=== PATIENT | female | born 1960 | race African-American/Black ===

== ENCOUNTER → 2016-10-29 | Outpatient (CLI) | payer BC ==
[~2016-10-29] MED LIST: CIPRO500 MG PO; COLCRYS0.6 MG PO; DOXYCYCLINE MO100 MG PO; FLOMAX0.4 MG PO; HCTZ PO; HYDR12.5C PO; INDOCIN50 MG PO; KEFLEX500 MG PO; NORVASC2.5 MG PO; PERCOCET 325 MG1 TA2 PO; SENOKOT1 TAB PO; TRAMADOL HCL50 MG PO; ZESTRIL,PRINIVI10 MG PO; ZYLOPRIM100 MG PO
[2016-10-29 13:06] LABS: BASO % 0.4 % (0.0-1.0); EOS # 0.2 10*3/uL (0.0-0.4); EOS % 2.1 % (1.0-4.0); HEMATOCRIT 39.5 % (37.0-47.0); HEMOGLOBIN 13.3 g/dl (12.0-16.0); LYMPH # 3.4 10*3/uL (1.3-4.4); LYMPH % 44.1 % (27.0-41.0); MEAN CELL VOLUME 90.6 fl (81.0-99.0); MEAN CORPUSCULAR HGB 30.5 pg (27.0-31.0); MEAN CORPUSCULAR HGB CONC 33.7 g/dl (33.0-37.0); MONO # 0.4 10*3/uL (0.1-1.0); NEUT # 3.7 10*3/uL (2.3-7.9); NEUT % 48.3 % (47.0-73.0); PLATELET COUNT AUTOMATED 287 10*3/uL (130-400); RED BLOOD COUNT 4.36 10*6/uL (4.10-5.10); RED CELL DISTRI WIDTH 12.4 % (0-14.5); WHITE BLOOD COUNT 7.8 10*3/uL (4.8-10.8)
[2016-10-29 13:34] LABS: ALBUMIN 3.5 gm/dl (3.1-4.5); ALKALINE PHOSPHATASE 71 U/L (45-117); BILIRUBIN, TOTAL 0.4 mg/dl (0.2-1.0); BUN 13 mg/dl (7-24); CARBON DIOXIDE 26 mmol/L (21-32); CHLORIDE 105 mmol/L (98-107); CHOLESTEROL 265 mg/dL (<200); EST GLOM FILT AFRICAN AMERICAN > 60 ml/min; FREE T4 1.13 ng/dl (0.76-1.46); GLUCOSE 128 mg/dL (65-99); HDL CHOLESTEROL 71 mg/dl (40-60); LDH 145 U/L (84-246); LDL CHOLESTEROL 133 mg/dL (9-159); POTASSIUM 3.4 mmol/L (3.5-5.1); SGOT/AST 20 IU/L (3-35); SGPT/ALT 23 U/L (12-78); SODIUM 144 mmol/L (136-145); TOTAL PROTEIN 7.9 gm/dL (6.4-8.2); TRIGLYCERIDES 305 mg/dl (<150); VLDL CHOLESTEROL 61 mg/dL (6-40)
[2016-10-29 13:54] LABS: HEMOGLOBIN A1c 10.1 % (4.8-5.6)
== END | disposition home or self-care (01) ==
LOC: LAB 12:37
PROVIDERS: Family Medicine
DX: E11.65 Type 2 diabetes mellitus with hyperglycemia (principal); I10 Essential (primary) hypertension; E78.5 Hyperlipidemia, unspecified; E55.9 Vitamin D deficiency, unspecified

== ENCOUNTER 2017-05-25 17:57 | Emergency (ER) | payer OTHER ==
[~2017-05-25] VITALS: Ht 172.7 cm; Wt 99.8 kg
[2017-05-25 19:28] LABS: BASO % 0.2 % (0.0-1.0); EOS % 0.1 % (1.0-4.0); HEMATOCRIT 38.8 % (37.0-47.0); HEMOGLOBIN 13.2 g/dl (12.0-16.0); IG # 0.1 10*3/uL (0.0-0.1); LYMPH # 1.1 10*3/uL (1.3-4.4); LYMPH % 5.9 % (27.0-41.0); MEAN CORPUSCULAR HGB 30.6 pg (27.0-31.0); MEAN PLATELET VOLUME 11.1 fl (9.6-12.3); MONO # 0.8 10*3/uL (0.1-1.0); MONO % 4.3 % (3.0-9.0); NEUT # 16.8 10*3/uL (2.3-7.9); NEUT % 89.2 % (47.0-73.0); PLATELET COUNT AUTOMATED 287 10*3/uL (130-400); RED BLOOD COUNT 4.31 10*6/uL (4.10-5.10); RED CELL DISTRI WIDTH 12.7 % (0-14.5); WHITE BLOOD COUNT 18.9 10*3/uL (4.8-10.8)
[2017-05-25 19:44] LABS: ALBUMIN 3.4 gm/dl (3.1-4.5); ALKALINE PHOSPHATASE 77 U/L (45-117); BILIRUBIN, TOTAL 0.5 mg/dl (0.2-1.0); BUN 10 mg/dl (7-24); CARBON DIOXIDE 25 mmol/L (21-32); CHLORIDE 101 mmol/L (98-107); EST GLOM FILT AFRICAN AMERICAN > 60 ml/min; GLUCOSE 310 mg/dL (65-99); MAGNESIUM 1.7 mg/dL (1.5-2.1); POTASSIUM 3.9 mmol/L (3.5-5.1); SGOT/AST 28 IU/L (3-35); SGPT/ALT 22 U/L (12-78); SODIUM 135 mmol/L (136-145); TOTAL PROTEIN 8.1 gm/dL (6.4-8.2)
[2017-05-25 19:46] LABS: TROPONIN I < 0.015 ng/ml (<0.045)
[2017-05-25] MEDS ORDERED: DOXYCYCLINE100 M3 PO (20:57)
[2017-05-25 21:24] LABS: LA>2 REFLEX 2 HR DRAW NOW
== END 2017-05-25 22:01 | disposition home or self-care (01) ==
LOC: ED 17:57
PROVIDERS: Nurse Practitioner
DX: J18.9 Pneumonia, unspecified organism (principal); D72.829 Elevated white blood cell count, unspecified; Z79.899 Other long term (current) drug therapy

== ENCOUNTER 2017-12-26 21:03 | Inpatient (IN) | payer OTHER ==
[~2017-12-26] VITALS: Ht 172.7 cm; Wt 104.1 kg
[~2017-12-26 21:03] MED LIST changes: +DOXYCYCLINE100 M3 PO
[2017-12-26 21:15] VITALS: BP 179/110
[2017-12-26 21:45] VITALS: BP 167/102
[2017-12-26 22:12] LABS: BASO % 0.5 % (0.0-1.0); EOS # 0.1 10*3/uL (0.0-0.4); EOS % 0.8 % (1.0-4.0); HEMATOCRIT 37.7 % (37.0-47.0); LYMPH # 3.9 10*3/uL (1.3-4.4); LYMPH % 45.5 % (27.0-41.0); MEAN CELL VOLUME 89.8 fl (81.0-99.0); MEAN CORPUSCULAR HGB CONC 34.5 g/dl (33.0-37.0); MEAN PLATELET VOLUME 11.2 fl (9.6-12.3); MONO # 0.4 10*3/uL (0.1-1.0); MONO % 4.4 % (3.0-9.0); NEUT # 4.2 10*3/uL (2.3-7.9); NEUT % 48.6 % (47.0-73.0); PLATELET COUNT AUTOMATED 318 10*3/uL (130-400); RED CELL DISTRI WIDTH 12.7 % (0-14.5); WHITE BLOOD COUNT 8.6 10*3/uL (4.8-10.8)
[2017-12-26 22:22] LABS: ACT PARTIAL THROMBO TIME 22.2 SECONDS (20.8-31.5)
[2017-12-26 22:30] LABS: ALBUMIN 3.2 gm/dl (3.1-4.5); ALKALINE PHOSPHATASE 71 U/L (45-117); BUN 14 mg/dl (7-24); CHLORIDE 104 mmol/L (98-107); POTASSIUM 3.6 mmol/L (3.5-5.1); SGOT/AST 22 IU/L (3-35); SGPT/ALT 24 U/L (12-78); SODIUM 138 mmol/L (136-145); TOTAL PROTEIN 7.6 gm/dL (6.4-8.2)
[2017-12-26 22:51] VITALS: BP 172/101
[2017-12-26] MEDS ORDERED: HYDROCHLOROTHIA25 M1 PO (23:54)
[2017-12-26] MEDS ORDERED: ZYLOPRIM300 MG PO (23:54)
[2017-12-26] MEDS ORDERED: LISINOPRIL40 MG PO (23:55)
[2017-12-26] MEDS ORDERED: LANTUS SOL100 UNIT/1 SQ (23:57)
[2017-12-27] VITALS (7 sets, daily range): BP systolic 134–164; BP diastolic 78–95
[2017-12-27] MEDS ORDERED: Motrin,Rufen800 MG PO (01:03)
[2017-12-27 06:30] LABS: BASO % 0.3 % (0.0-1.0); EOS # 0.1 10*3/uL (0.0-0.4); EOS % 1.2 % (1.0-4.0); HEMATOCRIT 34.3 % (37.0-47.0); HEMOGLOBIN 11.7 g/dl (12.0-16.0); LYMPH # 4.7 10*3/uL (1.3-4.4); LYMPH % 51.4 % (27.0-41.0); MEAN CELL VOLUME 91.2 fl (81.0-99.0); MEAN CORPUSCULAR HGB 31.1 pg (27.0-31.0); MEAN CORPUSCULAR HGB CONC 34.1 g/dl (33.0-37.0); MEAN PLATELET VOLUME 11.6 fl (9.6-12.3); MONO # 0.4 10*3/uL (0.1-1.0); MONO % 4.7 % (3.0-9.0); NEUT # 3.8 10*3/uL (2.3-7.9); NEUT % 42.2 % (47.0-73.0); PLATELET COUNT AUTOMATED 283 10*3/uL (130-400); RED BLOOD COUNT 3.76 10*6/uL (4.10-5.10); RED CELL DISTRI WIDTH 12.9 % (0-14.5); WHITE BLOOD COUNT 9.1 10*3/uL (4.8-10.8)
[2017-12-27 06:37] LABS: ACT PARTIAL THROMBO TIME 41.9 SECONDS (20.8-31.5)
[2017-12-27 07:03] LABS: BUN 15 mg/dl (7-24); CHLORIDE 104 mmol/L (98-107); CHOLESTEROL 262 mg/dL (<200); CREATININE 0.77 mg/dL (0.55-1.02); HDL CHOLESTEROL 49 mg/dl (40-60); POTASSIUM 3.3 mmol/L (3.5-5.1); SODIUM 137 mmol/L (136-145); TRIGLYCERIDES 567 mg/dl (<150)
[2017-12-27 07:41] LABS: VITAMIN D, 25-HYDROXY 22.2 ng/mL (30-100)
[2017-12-27] MEDS ORDERED: ASPIRIN ADULT L81 M2 PO (17:48)
[2017-12-27] MEDS ORDERED: ALDACTONE25 MG PO (17:48)
[2017-12-27] MEDS ORDERED: METOPROLOL SUCC25 M2 PO (17:48)
[2017-12-27] MEDS ORDERED: ATORVASTATIN CA80 M1 PO (17:48)
[2017-12-28] VITALS: BP 130/84
[2017-12-28 02:43] LABS: BASO # 0.1 10*3/uL (0.0-0.1); BASO % 0.6 % (0.0-1.0); EOS # 0.1 10*3/uL (0.0-0.4); EOS % 1.5 % (1.0-4.0); HEMOGLOBIN 12.3 g/dl (12.0-16.0); LYMPH # 4.7 10*3/uL (1.3-4.4); LYMPH % 50.9 % (27.0-41.0); MEAN CELL VOLUME 90.9 fl (81.0-99.0); MEAN CORPUSCULAR HGB 31.1 pg (27.0-31.0); MEAN CORPUSCULAR HGB CONC 34.2 g/dl (33.0-37.0); MEAN PLATELET VOLUME 11.4 fl (9.6-12.3); MONO # 0.5 10*3/uL (0.1-1.0); MONO % 5.7 % (3.0-9.0); NEUT # 3.8 10*3/uL (2.3-7.9); NEUT % 41.1 % (47.0-73.0); PLATELET COUNT AUTOMATED 292 10*3/uL (130-400); RED BLOOD COUNT 3.96 10*6/uL (4.10-5.10); RED CELL DISTRI WIDTH 12.8 % (0-14.5); WHITE BLOOD COUNT 9.3 10*3/uL (4.8-10.8)
[2017-12-28 02:54] LABS: BUN 13 mg/dl (7-24); CHLORIDE 105 mmol/L (98-107); CREATININE 0.75 mg/dL (0.55-1.02); POTASSIUM 3.4 mmol/L (3.5-5.1); SODIUM 139 mmol/L (136-145)
[2017-12-28 02:55] LABS: PHOSPHOROUS 3.3 mg/dL (2.5-4.9)
[2017-12-28 04:00] VITALS: BP 128/84
== END 2017-12-28 05:00 | disposition short-term general hospital (02) | DRG 281 ==
LOC: ED 21:03 → EDHOLD 22:48 → ICCU 22:48 → 5E 23:20 → ICCU 23:31
PROVIDERS: Internal Medicine; Internal Medicine Nephrology; Student in an Organized Health Care Education/Training Program
DX: I21.4 Non-ST elevation (NSTEMI) myocardial infarction (principal); E87.2 Acidosis; J90 Pleural effusion, not elsewhere classified; E11.65 Type 2 diabetes mellitus with hyperglycemia; E67.8 Other specified hyperalimentation; M10.9 Gout, unspecified; E66.9 Obesity, unspecified; E78.2 Mixed hyperlipidemia; D64.9 Anemia, unspecified; E55.9 Vitamin D deficiency, unspecified; I11.9 Hypertensive heart disease without heart failure; E87.6 Hypokalemia; Z79.2 Long term (current) use of antibiotics; Z79.4 Long term (current) use of insulin; Z79.899 Other long term (current) drug therapy; Z87.01 Personal history of pneumonia (recurrent); Z90.710 Acquired absence of both cervix and uterus; Z72.89 Other problems related to lifestyle; Z82.49 Family history of ischemic heart disease and other diseases of the circulatory system; Z83.3 Family history of diabetes mellitus; Z68.34 Body mass index [BMI] 34.0-34.9, adult

== ENCOUNTER 2018-07-11 11:03 | Emergency (ER) | payer OTHER ==
[~2018-07-11] VITALS: Ht 172.7 cm; Wt 99.8 kg
[~2018-07-11 11:03] MED LIST changes: +ALDACTONE25 MG PO; +ASPIRIN ADULT L81 M2 PO; +ATORVASTATIN CA80 M1 PO; +HYDROCHLOROTHIA25 M1 PO; +LANTUS SOL100 UNIT/1 SQ; +LISINOPRIL40 MG PO; +METOPROLOL SUCC25 M2 PO; +Motrin,Rufen800 MG PO; +ZYLOPRIM300 MG PO
[2018-07-11] MEDS ORDERED: Tobrex Ophth S2.5 ML OPH (11:47)
== END 2018-07-11 13:41 | disposition home or self-care (01) ==
LOC: ED 11:03
DX: H10.9 Unspecified conjunctivitis (principal); Z79.899 Other long term (current) drug therapy; Z79.82 Long term (current) use of aspirin; Z90.710 Acquired absence of both cervix and uterus

== ENCOUNTER 2019-02-07 15:10 | Emergency (ER) | payer OTHER ==
[~2019-02-07] VITALS: Wt 111.3 kg
--- NOTE | ~2019-02-07 | EKG ---
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
[~2019-02-07 15:10] MED LIST changes: +Tobrex Ophth S2.5 ML OPH
[2019-02-07 15:50] LABS: ABG HCO3 12.9 mmol/l (22-26); ABG O2 SATURATION 99.2 % (95-97); ARTERIAL BLOOD GAS PCO2 26.5 mmHg (35-45); ARTERIAL BLOOD GAS PH 7.295 (7.35-7.45)
[2019-02-07 15:52] LABS: ABG BASE EXCESS -12.6 mmol/L (-2.0-2.0)
[2019-02-07 15:56] LABS: HEMOGLOBIN 12.8 g/dl (12.0-16.0); MEAN CELL VOLUME 95.1 fl (81.0-99.0); MEAN CORPUSCULAR HGB 31.2 pg (27.0-31.0); MEAN CORPUSCULAR HGB CONC 32.8 g/dl (33.0-37.0); MEAN PLATELET VOLUME 11.5 fl (9.6-12.3); PLATELET COUNT AUTOMATED 246 10*3/uL (130-400); RED CELL DISTRI WIDTH 13.2 % (0-14.5)
[2019-02-07 16:05] LABS: ACT PARTIAL THROMBO TIME 25.5 SECONDS (20.8-31.5)
[2019-02-07 16:15] LABS: ALBUMIN 2.8 gm/dl (3.1-4.5); CREATININE 1.68 mg/dL (0.55-1.02); TOTAL PROTEIN 7.2 gm/dL (6.4-8.2); TROPONIN I 0.04 ng/ml (<0.045)
[2019-02-07 16:21] LABS: POTASSIUM 3.6 mmol/L (3.5-5.1)
[2019-02-07 16:22] LABS: TOTAL CELLS COUNTED 100 #CELLS
[2019-02-07 16:23] LABS: PLATELET SUFFICIENCY NORMAL (NORMAL)
== END 2019-02-07 16:42 | disposition short-term general hospital (02) ==
LOC: ED 15:19
PROVIDERS: Emergency Medicine
DX: I46.9 Cardiac arrest, cause unspecified (principal); E11.9 Type 2 diabetes mellitus without complications; I10 Essential (primary) hypertension; E78.2 Mixed hyperlipidemia; I25.2 Old myocardial infarction; Z79.2 Long term (current) use of antibiotics; Z79.899 Other long term (current) drug therapy; Z79.82 Long term (current) use of aspirin; Z79.4 Long term (current) use of insulin; Z90.710 Acquired absence of both cervix and uterus

== ENCOUNTER 2019-04-21 21:36 | Inpatient (IN) | payer OTHER ==
[~2019-04-21] VITALS: Ht 172.7 cm; Wt 98.7 kg
--- NOTE | ~2019-04-21 | CON ---
[place], [place] REPORT OF CONSULTATION NAME: TALI REDDY UNIT #: [id number] ROOM: 523 DOCTOR: ALEKSANDRA RAMOS,ERLINDA BIRTHDATE: [birth year] DOS: 04/23/2019 CARDIOLOGY CONSULTATION. REASON FOR CONSULTATION: Sinus bradycardia and CHF. HISTORY OF PRESENT ILLNESS: This is a 58-year-old patient with history of coronary artery disease, cardiomyopathy, hypertension, dyslipidemia, diabetes, who has presented to the Emergency Room for progressive shortness of breath as well as some cough. She is having some progressive shortness of breath for the past several weeks, but denies any PND or orthopnea. She was admitted to the hospital and Cardiology consulted due to her bradycardia and also congestive heart failure. Her only complaint is progressive shortness of breath without any PND or orthopnea. No nausea, vomiting, diarrhea. No fever and chills. No chest pains, no palpitations, dizziness or syncope. No nausea, vomiting, diarrhea. No bladder or bowel symptoms, no neurologic symptoms. No genitourinary symptoms. There is no family at bedside at the time of my examination. REVIEW OF SYSTEMS: Review of 10 systems negative except as mentioned above. PAST MEDICAL HISTORY: 1. Coronary artery disease with NSTEMI in the past. 2. Left ventricular dysfunction with ejection fraction 30% by echo in 2017. 3. Valvular heart disease. 4. Diabetes type 2. 5. Hypertension. 6. Moderate obesity. 7. Asthma. 8. Gout. PAST SURGICAL HISTORY: Nil contributory. SOCIAL HISTORY: The patient does not smoke, does not use the alcohol, does not use any drugs. FAMILY HISTORY: Noncontributory. ALLERGIES: Reviewed. HOME MEDICATIONS: Reviewed including Imdur, Coreg, lisinopril, Plavix, Bumex, Eliquis, and Lipitor. PHYSICAL EXAMINATION: VITAL SIGNS: Blood pressure 160/61, pulse 60, respirations 18, weight 99.9 kg, BMI 33.5. GENERAL: Alert, comfortable, in no acute distress. HEENT: Pupils are round and equal. No jaundice. Tongue was moist and pharynx clear. [place], [place] REPORT OF CONSULTATION NAME: TALI REDDY UNIT #: [id number] ROOM: 523 DOCTOR: ERLINDA LAKE MD BIRTHDATE: [birth year] NECK: Supple, no distended neck veins, no carotid bruit. CHEST: Symmetrical, nontender. LUNGS: Few scattered rhonchi. Good air entry bilaterally. HEART: Regular rhythm, no S3 and grade 2/6 systolic murmur. No palpable thrills. ABDOMEN: Morbidly obese, nontender. Bowel sounds normal. EXTREMITIES: Showed trace edema. Distal pulses palpable. SKIN: Warm and dry. No cyanosis, no clubbing. RECTAL: Deferred. GENITOURINARY: Deferred. PSYCHIATRIC: The patient is alert with good mood and affect. REVIEW OF THE DIAGNOSTIC TESTS: EKG, CBC, chemistry and labs reviewed. Pertinent labs include hemoglobin 10.5. Potassium 3.4, creatinine 0.74. The troponins are negative x 3. Echo from December 2017 showed an EF of 30% with mitral regurgitation, tricuspid regurgitation with right ventricular systolic pressure 34 mmHg. IMPRESSION: 1. Acute on chronic systolic heart failure. 2. History of coronary artery disease, non-ST elevation myocardial infarction. 3. Left ventricular dysfunction with ejection fraction 30% by echo 2018. 4. Valvular heart disease. 5. Mild pulmonary hypertension. 6. Hypertension. 7. Chronic obstructive pulmonary disease. 8. Anemia. 9. The patient was on Eliquis anticoagulation. RECOMMENDATIONS: 1. Continue IV Bumex and monitor her daily weights, ins and outs and renal function. 2. Decrease Coreg to 3.125 b.i.d. and hold for heart rate below 55, currently heart rates are improved after holding Coreg. 3. Increase lisinopril if needed for blood pressure control. 4. We will check 2D echo for LV function and valvular function. 5. Try to check her previous cardiac history including her cardiac catheterization from 2018, although the patient denies having cardiac catheterization. 6. Continue rest of the cardiac medications. 7. Risk factor modification for diet, exercise, weight loss discussed. 8. There is no family at bedside at the time of my examination. [place], [place] REPORT OF CONSULTATION NAME: TALI REDDY UNIT #: [id number] ROOM: 523 DOCTOR: ERLINDA LAKE MD BIRTHDATE: [birth year] ERLINDA LAKE MD CM:CONSTR:REPORT OF CONSULTATION 1921 04/24/19 0237 interface
--- NOTE | ~2019-04-21 | WRIGHTHP ---
[place], [place] PATIENT HISTORY AND PHYSICAL EXAM NAME: TALI REDDY [facility] #: [id number] UNIT #: [id number] ROOM: H2014 DOCTOR: ARABELLA CHILD MD BIRTHDATE: [birth year] DOS: 04/22/2019 HISTORY OF PRESENT ILLNESS: The patient is a 58-year-old female with a past medical history of: 1. Morbid obesity. 2. Coronary artery disease with NSTEMI. 3. Benign essential hypertension. 4. Mixed hyperlipidemia. 5. Type 2 diabetes mellitus. 6. Chronic gouty arthritis. 7. Moderate persistent asthma. The patient presented to the Emergency Department at [facility] with increasing shortness of breath and cough and she was found to be in acute congestive heart failure and acute exacerbation of moderate persistent asthma. REVIEW OF SYSTEMS: RESPIRATORY: Increased shortness of breath and wheezing. GASTROINTESTINAL: No nausea, vomiting, diarrhea, constipation. CARDIOVASCULAR: No chest pains or palpitations. FAMILY HISTORY: Noncontributory. SOCIAL HISTORY: Denies smoking cigarettes, alcohol or any drug abuse. ALLERGIES: No known drug allergies. PHYSICAL EXAMINATION: GENERAL: Alert, oriented, not a good historian, in no visible distress, morbid obesity. VITAL SIGNS: Blood pressure 159/62, heart rate of 76 beats per minute, breathing 16 times per minute, temperature 98.4 degrees Fahrenheit, HEENT AND NECK: Extraocular movements are intact. Sclerae are anicteric. Oral mucosa is moist and clean. No obvious facial weakness. Neck is supple without any lymphadenopathy. No thyromegaly. No JVD. No carotid arterial bruits. LUNGS: On lung auscultation, the patient has expiratory wheezing and decreased breath sounds all over. CARDIOVASCULAR SYSTEM: Heart rate is regular in rate and rhythm. S1 and S2 normally audible. No significant murmur or any other abnormal cardiac sounds. ABDOMEN: Soft, nontender. No obvious organomegaly. Bowel sounds are present. No obvious herniation. EXTREMITIES: Without significant cyanosis or edema. Warm to touch. CENTRAL NERVOUS SYSTEM: Alert and oriented x 3. Cranial nerves II-XII are intact. Speech is normal. The patient is able to move all extremities. Normal muscle strength. Deep tendon reflexes are equal on both sides. Plantars were downgoing. LABORATORY DATA: ProBNP elevated to 550. Chest x-ray is showing acute congestive heart failure findings, vascular congestion. BUN and creatinine [place], [place] PATIENT HISTORY AND PHYSICAL EXAM NAME: TALI REDDY [facility] #: [id number] UNIT #: [id number] ROOM: [facility] DOCTOR: ARABELLA CHILD MD BIRTHDATE: [birth year] elevated to 14 and 1.23, potassium low at 3.3, albumin low at 2.9. IMPRESSION AND PLAN: 1. The patient presenting with acute systolic type congestive heart failure. Echocardiogram to be performed and she will be diuresed with IV Bumex. Cardiology consult obtained. 2. Acute exacerbation of moderate persistent asthma, to be treated with bronchodilators, oxygen and antibiotics and the patient to be followed closely. 3. Morbid obesity. The patient to work with Dietary. 4. Mild protein calorie malnutrition. The patient to work with Dietary. 5. Mixed hyperlipidemia, treated with Lipitor. 6. Benign essential hypertension. The patient on amlodipine. Blood pressure being monitored and treated. 7. Type 2 diabetes mellitus. The patient to be continued on Lantus insulin and blood sugars to be monitored. 8. Generalized disability and ambulatory dysfunction. The patient to work with Physical Therapy. ARABELLA CHILD MD CM:HISPHYS:PATIENT HISTORY AND PHYSICAL EXAMINATION [id number] ARABELLA CHILD MD 04/22/19 1737 interface
--- NOTE | ~2019-04-21 | PR ---
[place], [place] PROGRESS NOTE [id number] UNIT #: [id number] ROOM: 523 DOCTOR: ERLINDA LAKE MD BIRTHDATE: [birth year] DOS: 04/26/2019 CARDIOLOGY FOLLOWUP NOTE REASON FOR VISIT: Heart failure and atrial fibrillation, in sinus bradycardia. SUBJECTIVE: The patient is feeling better. Denies any chest pain or shortness of breath. No palpitation, dizziness, no PND, no orthopnea. No nausea, vomiting or diarrhea. REVIEW OF SYSTEMS: Review of the 8 systems negative except as mentioned above. PHYSICAL EXAMINATION: VITAL SIGNS: Blood pressure 126/80, pulse 92, respiratory rate 19, weight 98.6 kilos. RHYTHM STRIPS: The patient in sinus rhythm. GENERAL: The patient is alert, comfort, no acute distress. HEAD AND NECK: Pupils are round and equal. No jaundice. NECK: Supple, no distended neck veins, no carotid bruit. CHEST: Symmetrical, nontender. LUNGS: Clear to auscultation bilaterally. HEART: Regular rhythm, no S3, no palpable thrills. ABDOMEN: Benign, obese, nontender. Bowel sounds normal. EXTREMITIES: Showed no edema. Distal pulses palpable. SKIN: Warm and dry. No cyanosis, no clubbing. RECTAL: Deferred. NEUROLOGIC: The patient is alert. No focal neurologic deficit. LABORATORY DATA AND MEDICATIONS: Reviewed. IMPRESSION: 1. Acute on chronic heart failure, diastolic heart failure, ejection fraction 60%. 2. Coronary artery disease. Cardiac catheterization in December 2017 showed a total right coronary artery and a 50% left circumflex stenosis. 3. Paroxysmal atrial fibrillation. 4. Sinus bradycardia, resolved after decreasing her beta blockers. 5. Hypertension. 6. Non-morbid obesity. RECOMMENDATIONS: 1. Continue current medication as the patient can be discharged from the cardiac standpoint. Follow up with [facility] at [facility] in 2-4 weeks. 2. Compliance with medications and followup with doctor visits were discussed. 3. No family at bedside at the time of examination. [place], [place] PROGRESS NOTE NAME: TALI REDDY UNIT #: [id number] ROOM: 523 DOCTOR: ERLINDA LAKE MD BIRTHDATE: [birth year] ERLINDA LAKE MD CM:PRESTON [id number] ERLINDA LAKE MD 04/27/19 0001 interface
--- NOTE | ~2019-04-21 | PR ---
[place], [place] PROGRESS NOTE NAME: TALI REDDY [facility] #: [id number] UNIT #: [id number] ROOM: 523 DOCTOR: ARABELLA CHILD MD BIRTHDATE: [birth year] DOS: 04/25/2019 SUBJECTIVE: The patient continues to improve. OBJECTIVE: GENERAL APPEARANCE: The patient is alert and oriented x 3, in no visible distress. Obesity. VITAL SIGNS: Blood pressure 119/70, heart rate of 86 beats per minute, temperature 98.2 degrees Fahrenheit. HEENT AND NECK: Exam within normal limits. CARDIOVASCULAR SYSTEM: Heart rate is regular in rate and rhythm. S1 and S2 normally audible. LUNGS: Clear to auscultation. ABDOMEN: Soft, nontender. No obvious organomegaly. Bowel sounds are present. EXTREMITIES: Without significant cyanosis or edema. IMPRESSION: 1. Acute over chronic diastolic type congestive heart failure on echocardiogram, improved with diuresis. The patient is breathing much better and I may be able to discharge her back to home tomorrow. 2. Acute exacerbation of chronic obstructive pulmonary disease, improving with treatment with bronchodilators. 3. Obesity with body mass index of 33.4. The patient is working with Dietary. 4. Mild protein-calorie malnutrition. The patient is working with Dietary. 5. Generalized adult failure to thrive. The patient is working with Physical Therapy. 6. Coronary artery disease of the [place] vessels. The patient remains on isosorbide and chest pain free. She also takes lisinopril and Coreg. 7. Hypokalemia, treated with extra potassium supplements. ARABELLA CHILD MD CM:PNTRANS 23 [phone] ARABELLA CHILD MD 04/26/19211 interface
--- NOTE | ~2019-04-21 | EKG ---
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 : 1960 Requested By: HEMANT TRONCOSO PA-C Order Number: [id number] Reading MD: Flex Lazcano Measurements Intervals [place] Rate: 60 P: 22 IN: 199 QRS: 8 QRSD: 110 T: QT: 483 QTc: 483 Interpretive Statements Sinus rhythm Nonspecific T abnormalities, lateral leads Compared to ECG 02/07/2019 15:38:59 T-wave abnormality now present Atrial fibrillation no longer present Left posterior fascicular block no longer present Right bundle-branch block no longer present Electronically Signed On 04-23-2019 9:48:12 PDT by Flex Lazcano CM:EKGRPT:ELECTROCARDIOGRAM REPORT [id number] HEMANT LARES DRAFT REPORT HEMANT TRONCOSO PA-C
--- NOTE | ~2019-04-21 | PR ---
[place], [place] PROGRESS NOTE NAME: TALI REDDY [facility] #: [id number] UNIT #: [id number] ROOM: 523 DOCTOR: ERLINDA LAKE MD BIRTHDATE: [birth year] DOS: 04/25/2019 CARDIOLOGY PROGRESS NOTE REASON FOR VISIT: Congestive heart failure and coronary artery disease. HISTORY OF PRESENT ILLNESS: The patient is feeling better. Denies any chest pain or shortness of breath. No PND, no orthopnea. No nausea, vomiting, diarrhea. No fever and chills. No cough or hemoptysis. No genitourinary symptoms. No bladder or bowel symptoms. REVIEW OF SYSTEMS: Review of 10 systems negative except as mentioned above. RHYTHM STRIPS: The patient is in sinus rhythm. PHYSICAL EXAMINATION: VITAL SIGNS: Blood pressure 128/55, respiratory rate is 18, pulse 98, weight 98.6 kilos. GENERAL: Alert, comfortable, in no acute distress. HEAD AND NECK: Supple, no distended neck veins, no carotid bruit. CHEST: Symmetrical, nontender. LUNGS: Clear to auscultation bilaterally. HEART: Regular rhythm, no S3. Grade 1/6 systolic murmur. ABDOMEN: Benign, nontender, obese. Bowel sounds normal. EXTREMITIES: Showed trace to 1+ edema. Distal pulses palpable. SKIN: Warm and dry. No cyanosis, no clubbing. RECTAL: Deferred. GENITOURINARY: Deferred. NEUROLOGIC: The patient is alert with no focal neurologic deficit. MEDICATIONS AND LABORATORY DATA: A 2D echo showed normal LV function. IMPRESSION: 1. Dhelt-nv-wasvfhs heart failure with preserved ejection fraction, EF 60%. 2. Paroxysmal atrial fibrillation, in sinus rhythm. 3. Sinus bradycardia, resolved after decreasing her beta blockers. 4. Coronary artery disease. Cardiac catheterization in 12/2017 showed total right coronary artery and a 50% circumflex artery. 5. Hypertension, stable. RECOMMENDATIONS: 1. Continue current medication. 2. The patient can be discharged from the cardiac standpoint. 3. Case was discussed with Dr. Shashi Quick. 4. Tentative discharge tomorrow. 5. Follow up with [facility] at the [facility] in 3-4 weeks after discharge. 6. Echo findings were discussed with the patient. 7. No family at bedside at the time of my examination. 8. She can be discharged home on her current cardiac medications. [place], [place] PROGRESS NOTE NAME: TALI REDDY UNIT #: [id number] ROOM: 523 DOCTOR: ERLINDA LAKE MD BIRTHDATE: [birth year] ERLINDA LAKE MD CM:PNTRANS [id number] ERLINDA LAKE MD 04/26/19 0008 interface
--- NOTE | ~2019-04-21 | DS ---
[place], [place] DISCHARGE SUMMARY NAME: TALI REDDY [facility] #: [id number] UNIT #: [id number] ROOM: 523 DOCTOR: ARABELLA CHILD MD BIRTHDATE: [birth year] DOS: 04/26/2019 DISCHARGE DIAGNOSES: 1. Acute diastolic type congestive heart failure, resolved with treatment. 2. Obesity. BMI of 33.4. The patient worked with Dietary. 3. Acute exacerbation of chronic obstructive pulmonary disease. 4. Mild protein-calorie malnutrition. 5. Generalized adult failure to thrive. 6. Anoxic brain injury from cardiac arrest in 01/2019. 7. Moderate persistent asthma. 8. Chronic gouty arthritis. 9. Type 2 diabetes mellitus. 10. Mixed hyperlipidemia. 11. Benign essential hypertension. 12. Coronary artery disease with non-ST elevation myocardial infarction in 01/2019. HOSPITAL COURSE: The patient presented to the Emergency Department, brought over for increased shortness of breath and was found to be in acute congestive heart failure. Echocardiogram was performed, which showed normal left ventricular ejection fraction with moderate left ventricular hypertrophy. Apparently, the patient had acute diastolic type congestive heart failure, which was treated with IV Bumex, which is being continued at home along with potassium supplements. Hypokalemia from diuresis. The patient was started on potassium supplements. Acute exacerbation of moderate persistent asthma, treated with bronchodilators, resolved. Wheezing has resolved. The patient is not short of breath anymore. Obesity, BMI of 33.4, treated and followed by Dietary. Mild protein-calorie malnutrition, followed by Dietary. Mixed hyperlipidemia, treated with Lipitor. Benign essential hypertension, treated and controlled. The patient is on amlodipine. Type 2 diabetes mellitus, treated and controlled with insulin. Adult failure to thrive and ambulatory dysfunction. The patient worked with physical therapy. DISCHARGE MANAGEMENT: Bumex 1 mg daily, potassium chloride 20 mEq daily, Coreg 3.125 mg b.i.d., isosorbide dinitrate 60 mg a day, Plavix 75 mg a day, lisinopril 10 mg a day, allopurinol 300 mg a day, Protonix 40 mg b.i.d., Lantus insulin 16 units b.i.d., apixaban 5 mg b.i.d., Lipitor 80 mg a day, DuoNeb q.i.d. p.r.n. for shortness of breath. [place], [place] DISCHARGE SUMMARY NAME: TALI REDDY UNIT #: [id number] ROOM: 523 DOCTOR: ARABELLA CHILD MD BIRTHDATE: [birth year] ARABELLA CHILD MD CM:DISCHARG [phone] ARABELLA CHILD MD 04/26/19 1258 interface
--- NOTE | ~2019-04-21 | PR ---
[place], [place] PROGRESS NOTE NAME: TALI REDDY [facility] #: [id number] UNIT #: [id number] ROOM: 523 DOCTOR: ERLINDA LAKE MD BIRTHDATE: [birth year] DOS: 04/24/2019 REASON FOR VISIT: Congestive heart failure, coronary artery disease and sinus bradycardia. HISTORY OF PRESENT ILLNESS: The patient is feeling better. Denies any dizziness or palpitations. No chest pain, no PND or orthopnea. Complaining of some mild shortness of breath. No fever or chills. No cough. No nausea, vomiting, diarrhea. No bladder or bowel symptoms. No neurologic symptoms. No musculoskeletal symptoms. No genitourinary symptoms. REVIEW OF SYSTEMS: Review of 10 systems negative except as mentioned above. PHYSICAL EXAMINATION: VITAL SIGNS: Blood pressure 140/58, pulse 77, respiratory rate 20. Rhythm strips, the patient is in sinus rhythm. GENERAL: Alert, comfortable, in no acute distress. HEAD AND NECK: Pupils are round and equal. No jaundice. Tongue was moist and pharynx clear. Neck is supple. No distended neck veins. No carotid bruit. CHEST: Symmetrical, nontender. LUNGS: Clear to auscultation bilaterally. HEART: Regular rhythm, no S3. No palpable thrills. ABDOMEN: Obese, nontender. Bowel sounds normal. EXTREMITIES: Showed a trace to 1+ edema. Distal pulses palpable. SKIN: Warm and dry. No cyanosis, no clubbing. RECTAL: Deferred. GENITOURINARY: Deferred. NEUROLOGIC: The patient is alert with no focal neurologic deficit. MUSCULOSKELETAL: No joint tenderness or swelling. PSYCHIATRIC: The patient is alert with good mood and affect. MEDICATIONS AND LABORATORIES: Reviewed. Hemoglobin 10.2, potassium 3.4, creatinine 1.23. IMPRESSION: 1. Acute on chronic systolic heart failure. 2. Coronary artery disease. Cardiac cath 12/2017 showed a total occluded right coronary artery with collaterals and noncritical circumflex disease. 3. Chronic anemia. 4. Valvular heart disease. 5. Sinus bradycardia, resolved. RECOMMENDATIONS: 1. Continue current medications. 2. Change to p.o. Bumex from IV. 3. Watch her daily weights, ins and outs, blood pressure as well as renal function. 4. Cardiac cath from 12/2017 reviewed, which showed EF of 20% with coronary artery disease. 5. The patient was seen by Dr. Cisneros, electrophysiology and the patient declined [place], [place] PROGRESS NOTE NAME: TALI REDDY [facility] #: [id number] UNIT #: [id number] ROOM: 523 DOCTOR: ALEKSANDRA RAMOS,ERLINDA BIRTHDATE: [birth year] [employer] at that time. 6. We will review the 2D echo. If EF is less than 35%, we will discuss ICD implant due to risk of sudden cardiac . Her blood pressure and heart rates are stable. 7. Continue current medication. 8. Supplement her potassium. 9. No family at bedside at the time of examination. ERLINDA LAKE MD CM:PNTRANS [phone] ERLINDA LAKE MD 05/05/19 0737 interface
--- NOTE | ~2019-04-21 | PR ---
[place], [place] PROGRESS NOTE [id number] UNIT #: [id number] ROOM: 523 DOCTOR: ARABELLA CHILD MD BIRTHDATE: [birth year] DOS: 04/23/2019 SUBJECTIVE: The patient is breathing better and more alert and oriented today. OBJECTIVE: GENERAL APPEARANCE: The patient is alert and oriented x 3, in no visible distress. VITAL SIGNS: Blood pressure 146/83, heart rate of 95 beats per minute, breathing 18 times per minute, temperature 98.5 degrees Fahrenheit. HEENT AND NECK: Exam within normal limits. CARDIOVASCULAR SYSTEM: Heart rate is regular in rate and rhythm. S1 and S2 normally audible. LUNGS: Clear to auscultation. ABDOMEN: Soft, nontender. No obvious organomegaly. Bowel sounds are present. Obesity. EXTREMITIES: Without significant cyanosis or edema. IMPRESSION: 1. The patient with acute congestive heart failure, systolic type. Echocardiogram results still pending, being treated with IV Bumex, the patient appears better today. 2. Acute exacerbation of moderate persistent asthma with wheezing, improved with treatment. 3. Obesity, BMI of 33.4. The patient to work with Dietary. 4. Mild protein calorie malnutrition. The patient working with Dietary. 5. Mixed hyperlipidemia, treated with Lipitor. 6. Benign essential hypertension, treated and controlled. The patient remains on amlodipine. 7. Type 2 diabetes mellitus. The patient remains on Lantus insulin. Blood sugar is normal. 8. Hypokalemia. The patient to be given extra potassium today. 9. Generalized adult failure to thrive and ambulatory dysfunction. The patient to work with physical therapy. The patient on Coreg and lisinopril along with isosorbide. [place], [place] PROGRESS NOTE [facility] [id number] UNIT #: [id number] ROOM: 523 DOCTOR: ARABELLA CHILD MD BIRTHDATE: [birth year] ARABELLA CHILD MD CM:PNTRANS [id number] ARABELLA CHILD MD 04/24/19 0126 interface
--- NOTE | ~2019-04-21 | PR ---
[place], [place] PROGRESS NOTE NAME: TALI REDDY [facility] #: [id number] UNIT #: [id number] ROOM: 523 DOCTOR: ARABELLA CHILD MD BIRTHDATE: [birth year] DOS: 04/24/2019 OBJECTIVE: GENERAL APPEARANCE: The patient is alert and oriented x 3, in no visible distress. Obesity. VITAL SIGNS: Blood pressure 148/68, heart rate of 69 beats per minute, breathing 18 times per minute, temperature 98.6 degrees Fahrenheit. HEENT AND NECK: Exam within normal limits. CARDIOVASCULAR SYSTEM: Heart rate is regular in rate and rhythm. S1 and S2 normally audible. LUNGS: Clear to auscultation. ABDOMEN: Soft, nontender. No obvious organomegaly. Bowel sounds are present. EXTREMITIES: Without significant cyanosis or edema. IMPRESSION: 1. The patient with acute congestive heart failure, systolic type. Echocardiogram results are still pending. Cardiology is following. The patient is being diuresed. 2. Acute exacerbation of chronic obstructive pulmonary disease and acute exacerbation of bronchial asthma with wheezing, improving with treatment. The patient is on bronchodilators. 3. Obesity, BMI of 33.4. The patient is working with Dietary. 4. Mild protein calorie malnutrition. The patient is working with Dietary. 5. Mixed hyperlipidemia, treated with Lipitor. 6. Benign essential hypertension, treated and controlled. The patient is on amlodipine. 7. Hypokalemia, resolved, being treated with extra potassium supplements, so I will give her more potassium today. 8. Generalized adult failure to thrive and ambulatory dysfunction. The patient is working with physical therapy. 9. Coronary artery disease of the [place] vessels. The patient is on isosorbide and without chest pains. She also takes lisinopril and Coreg. ARABELLA CHILD MD CM:PNTRANS [id number] ARABELLA CHILD MD 04/24/19 1455 interface
[2019-04-21 21:42] VITALS: BP 159/61
[2019-04-21 22:27] LABS: BASO % 0.5 % (0.0-1.0); EOS # 0.1 10*3/uL (0.0-0.4); EOS % 1.2 % (1.0-4.0); HEMATOCRIT 28.4 % (37.0-47.0); HEMOGLOBIN 9.2 g/dl (12.0-16.0); LYMPH # 2.9 10*3/uL (1.3-4.4); LYMPH % 36.2 % (27.0-41.0); MEAN CELL VOLUME 96.3 fl (81.0-99.0); MEAN CORPUSCULAR HGB 31.2 pg (27.0-31.0); MEAN CORPUSCULAR HGB CONC 32.4 g/dl (33.0-37.0); MEAN PLATELET VOLUME 10.3 fl (9.6-12.3); MONO # 0.5 10*3/uL (0.1-1.0); NEUT # 4.5 10*3/uL (2.3-7.9); NEUT % 55.9 % (47.0-73.0); PLATELET COUNT AUTOMATED 297 10*3/uL (130-400); RED BLOOD COUNT 2.95 10*6/uL (4.10-5.10); WHITE BLOOD COUNT 8.1 10*3/uL (4.8-10.8)
[2019-04-21 22:37] LABS: INTERNATIONAL NORM RATIO 1.1 (2.0-3.5)
[2019-04-21 22:43] LABS: ALBUMIN 2.9 gm/dl (3.1-4.5); ALKALINE PHOSPHATASE 93 U/L (45-117); BUN 14 mg/dl (7-24); CHLORIDE 111 mmol/L (98-107); CREATININE 1.23 mg/dL (0.55-1.02); POTASSIUM 3.3 mmol/L (3.5-5.1); SGOT/AST 13 IU/L (3-35); SGPT/ALT 12 U/L (12-78); SODIUM 142 mmol/L (136-145); TOTAL PROTEIN 7.3 gm/dL (6.4-8.2)
[2019-04-21 22:46] LABS: TROPONIN I < 0.015 ng/ml (<0.045)
[2019-04-22] VITALS (7 sets, daily range): BP systolic 142–201; BP diastolic 52–84
--- NOTE | 2019-04-22 08:24 | NUR ---
RESTING QUIETLY IN BED WITH EYES CLOSED. RESPS ARE EASY AND NON LABORED. VOICES NO COMPLAINTS OR NEEDS AT THIS TIME.
--- NOTE | 2019-04-22 10:24 | NUR ---
DR CHILD HAS BEEN CALLED REGARDING ADMITTING ORDERS. STATED HE WILL BE DOWN TO SEE HER.
--- NOTE | 2019-04-22 12:04 | NUR ---
RESTING IN NO DISTRESS. HAS EATEN BREAKFAST.
--- NOTE | 2019-04-22 19:10 | NUR ---
A 58, admitted to [facility], under the services of Dr. DANYELL RAMOS,ARABELLA Norton with a diagnosis of CHF. Chief complaint is SHORTNESS OF BREATH. Patient arrived via stretcher from ER. Monitor applied. Initial assessment completed. Vital signs taken and recorded. DR. DANYELL RAMOS,ARABELLA Norton notified of admission to the unit. Orders received. See assessment for past medical history, medications and allergies. Patient and/or family oriented to unit. Clothing/patient valuable form completed. ANITHA ARELALNO
--- NOTE | 2019-04-22 19:58 | NUR ---
THIS NURSE CHANGED THE PATIENT BED LINENS GAVE HER A CLEAN GOWN AND WIPES TO FRESHEN UP WITH. THE FAMILY IS AT THE BEDSIDE.
[2019-04-22] MEDS ORDERED: CLOPIDOGREL75 MG PO (20:02)
[2019-04-22] MEDS ORDERED: PROTONIX40 MG PO (20:03)
[2019-04-22] MEDS ORDERED: COREG25 MG PO (20:04)
[2019-04-22] MEDS ORDERED: ELIQUIS5 M1 PO (20:04)
[2019-04-22] MEDS ORDERED: ISOSORBIDE MONO60 MG PO (20:04)
[2019-04-22] MEDS ORDERED: IRON325 M1 PO (20:05)
--- NOTE | 2019-04-23 00:15 | NUR ---
REPORT RECEIVED, PT ASSESSED AND RESTING QUIETLY IN BED. PT DENIES ANY NEEDS AT THIS TIME REMAINS ALERT AND ORIENTED X3. LUNGS DIM. HR 50-60'S AND IRREGULAR. PT BP DOWN TO 180/60 CURRENTLY. CALL LIGHT IN REACH AND BED IN LOW LOCKED POSITION.
[2019-04-23 06:13] LABS: BASO # 0.1 10*3/uL (0.0-0.1); BASO % 0.6 % (0.0-1.0); EOS # 0.2 10*3/uL (0.0-0.4); EOS % 2.9 % (1.0-4.0); HEMATOCRIT 33.3 % (37.0-47.0); HEMOGLOBIN 10.5 g/dl (12.0-16.0); LYMPH # 2.6 10*3/uL (1.3-4.4); LYMPH % 33.5 % (27.0-41.0); MEAN CELL VOLUME 96.5 fl (81.0-99.0); MEAN CORPUSCULAR HGB 30.4 pg (27.0-31.0); MEAN CORPUSCULAR HGB CONC 31.5 g/dl (33.0-37.0); MEAN PLATELET VOLUME 10.7 fl (9.6-12.3); MONO # 0.5 10*3/uL (0.1-1.0); NEUT # 4.4 10*3/uL (2.3-7.9); NEUT % 56.9 % (47.0-73.0); PLATELET COUNT AUTOMATED 315 10*3/uL (130-400); RED BLOOD COUNT 3.45 10*6/uL (4.10-5.10); RED CELL DISTRI WIDTH 15.9 % (0-14.5); WHITE BLOOD COUNT 7.7 10*3/uL (4.8-10.8)
[2019-04-23 06:25] LABS: BUN 7 mg/dl (7-24); CHLORIDE 109 mmol/L (98-107); CREATININE 0.79 mg/dL (0.55-1.02); POTASSIUM 3.4 mmol/L (3.5-5.1); SODIUM 142 mmol/L (136-145)
--- NOTE | 2019-04-23 06:52 | NUR ---
WENT TO GO CHECK ON PATIENT. PATIENT SLEEPING AT THIS TIME WITH NO DISTRESS OR CONCERNS NOTED. PATIENT LEFT ALSLEEP.
--- NOTE | 2019-04-23 07:12 | NUR ---
INCONTINENT OF LARGE AMOUNT OF URINE. LINENS, GOWN AND DEPENDS CHANGED.
--- NOTE | 2019-04-23 07:50 | NUR ---
ASSUMED CARE OF PATIENT. PT IN BED AT THIS TIME, NO COMPLAINTS
--- NOTE | 2019-04-23 09:46 | NUR ---
NOTIFIED OF HR ON 48 NEW ORDERS RECIEVED
[2019-04-23 12:00] VITALS: BP 116/67; BP 146/83
[2019-04-23 16:00] VITALS: BP 152/53
--- NOTE | 2019-04-23 19:30 | NUR ---
ASSUMED CARE FOR PT AT THIS TIME. PT IS RESTING IN BED AT THIS TIME WITH NO OBVIOUS SIGNS/SYMPTOMS OF PAIN OR DISCOMFORT. RESPIRATIONS EASY AND NONLABORED. SAFETY MEASURES IN PLACE, CALL LIGHT WITHIN REACH. WILL CONTINUE TO MONITOR PT.
[2019-04-23 20:00] VITALS: BP 151/75
[2019-04-24] VITALS: BP 140/58
[2019-04-24 07:04] LABS: BASO # 0.1 10*3/uL (0.0-0.1); BASO % 0.6 % (0.0-1.0); EOS # 0.2 10*3/uL (0.0-0.4); EOS % 1.8 % (1.0-4.0); HEMATOCRIT 31.8 % (37.0-47.0); HEMOGLOBIN 10.2 g/dl (12.0-16.0); LYMPH # 3.3 10*3/uL (1.3-4.4); LYMPH % 37.2 % (27.0-41.0); MEAN CELL VOLUME 95.8 fl (81.0-99.0); MEAN CORPUSCULAR HGB 30.7 pg (27.0-31.0); MEAN CORPUSCULAR HGB CONC 32.1 g/dl (33.0-37.0); MEAN PLATELET VOLUME 10.7 fl (9.6-12.3); MONO # 0.6 10*3/uL (0.1-1.0); MONO % 6.8 % (3.0-9.0); NEUT # 4.7 10*3/uL (2.3-7.9); NEUT % 53.3 % (47.0-73.0); PLATELET COUNT AUTOMATED 312 10*3/uL (130-400); RED BLOOD COUNT 3.32 10*6/uL (4.10-5.10); RED CELL DISTRI WIDTH 15.8 % (0-14.5); WHITE BLOOD COUNT 8.9 10*3/uL (4.8-10.8)
[2019-04-24 07:34] LABS: CREATININE 1.23 mg/dL (0.55-1.02); POTASSIUM 3.4 mmol/L (3.5-5.1)
[2019-04-24 08:00] VITALS: BP 148/68
--- NOTE | 2019-04-24 11:51 | NUR ---
Nutritional Support Services Note: Instructed pt on 1800cal diabetic diet. Diet copy given to pt. Pt has been a diabetic for ten years has never complied with diet. She normally only eats two meals daily, stressed importance of three meals daily and a night snack. Encouraged adequate protein and proper portion sizes for weight loss and BS control. Pt had no questions at this time. Encouraged follow up if needed. Sowmya Patel Rdn Ld
--- NOTE | 2019-04-24 14:30 | NUR ---
Electric Deicer Assembler in to talk to patient. Patient states lives at home with her granddaughter. There are 8 steps in the home. Physician: Dr. Shashi Quick Pharmacy: [facility] Home health services: none Patient's level of ADLs: MINIMAL ASSIST Patient has working utilities: yes DME: none Follow-up physician's appointment after d/c: she prefers to make her own follow up appt after discharge Does patient want to access PORTAL?: no Discharge plan discussed with patient and granddaughter who is at the bedside. She lives currently with the granddaughter. She needs minimal assistance with her ADLs and ambulation. Discussed home health care services and granddaughter is currently looking into getting a home health aide. When medically stable she will be discharged to home. LILLY BRENNER
[2019-04-24 16:00] VITALS: BP 133/76
[2019-04-24 20:00] VITALS: BP 110/67
--- NOTE | 2019-04-24 20:00 | NUR ---
PT RESTING IN BED AT THIS TIME WITH NO OBVIOUS S/S OF PAIN OR DISCOMFORT. SHE DENIES ANY NEEDS AT THIS TIME. RESPIRATIONS EASY AND NONLABORED. INITIAL SHIFT ASSESSMENT COMPLETED- SEE SHIFT ASSESSMENT. SAFETY MEASURES INTACT, CALL LIGHT IS WITHIN REACH. WILL CONTINUE TO MONITOR PT.
[2019-04-25] VITALS: BP 126/53
--- NOTE | 2019-04-25 05:12 | NUR ---
DR. COSTELLO NOTIFIED PT'S HEART RATE SITTING IN 120-130'S PER CM.
[2019-04-25 06:26] LABS: BASO % 0.4 % (0.0-1.0); EOS # 0.1 10*3/uL (0.0-0.4); EOS % 1.4 % (1.0-4.0); HEMATOCRIT 31.8 % (37.0-47.0); HEMOGLOBIN 10.2 g/dl (12.0-16.0); LYMPH % 32.2 % (27.0-41.0); MEAN CELL VOLUME 96.1 fl (81.0-99.0); MEAN CORPUSCULAR HGB 30.8 pg (27.0-31.0); MEAN CORPUSCULAR HGB CONC 32.1 g/dl (33.0-37.0); MONO # 0.7 10*3/uL (0.1-1.0); MONO % 7.1 % (3.0-9.0); NEUT # 5.4 10*3/uL (2.3-7.9); NEUT % 58.8 % (47.0-73.0); PLATELET COUNT AUTOMATED 326 10*3/uL (130-400); RED BLOOD COUNT 3.31 10*6/uL (4.10-5.10); RED CELL DISTRI WIDTH 15.8 % (0-14.5); WHITE BLOOD COUNT 9.2 10*3/uL (4.8-10.8)
[2019-04-25 07:01] LABS: CREATININE 1.57 mg/dL (0.55-1.02); POTASSIUM 3.7 mmol/L (3.5-5.1)
--- NOTE | 2019-04-25 08:30 | NUR ---
English Composition Teacher in to see patient. No new needs or request at this time. She denies any home needs at this time. When medically stable she will be discharged to home.
[2019-04-25 08:53] VITALS: BP 110/56
[2019-04-25 12:00] VITALS: BP 119/70
--- NOTE | 2019-04-25 19:41 | NUR ---
ASSUMED CARE FOR PT AT THIS TIME. SHE IS RESTING QUIETLY IN BED WITH NO OBVIOUS SIGNS/SYMPTOMS OF PAIN OR DISCOMFORT. RESPIRATIONS EASY AND NONLABORED. SHE DENIES ANY NEEDS. SAFETY MEASURES IN PLACE, CALL LIGHT WITHIN REACH. WILL CONTINUE TO MONITOR PT.
[2019-04-25 20:00] VITALS: BP 127/69
[2019-04-26] VITALS: BP 144/76
--- NOTE | 2019-04-26 04:21 | NUR ---
PT RESTING IN BED AT THIS TIME WITH NO S/S OF PAIN OR DISCOMFORT. RESPIRATIONS EASY AND NONLABORED. BED LOCKED AND IN THE LOWEST POSITION, CALL LIGHT WITHIN REACH. WILL CONTINUE TO MONITOR.
[2019-04-26 07:54] VITALS: BP 126/58; BP 138/80
--- NOTE | 2019-04-26 08:30 | NUR ---
PATIENT AWAKE, ALERT, ORIENTED X3. VERY FORGETFUL. DENIES ANY PAIN OR SOB @ REST. BILATERAL INSPIRATORY WHEEZES AUSCULTATED. ROOM AIR POX 95%. NO EDEMA NOTED. ABD SOFT, NONTENDER, OBESE. CALL LIGHT WITHIN REACH.
[2019-04-26] MEDS ORDERED: BUMETANIDE1 MG PO (10:54)
[2019-04-26] MEDS ORDERED: KLOR-CON M2020 ME1 PO (10:54)
[2019-04-26] MEDS ORDERED: CARVEDILOL3.125 MG PO (10:54)
[2019-04-26 12:00] VITALS: BP 149/81
--- NOTE | 2019-04-26 15:06 | NUR ---
Discharge instructions reviewed with patient/family. Patient receptive and verbalizes understanding. Follow-up care arranged. Written instructions given to patient/family. HEPLOCK DISCONTINUED. PATIENT TAKEN OFF FLOOR VIA WHEELCHAIR. PICKED UP BY SON CAROLA. INSTRUCTIONS WENT OVER WITH FAMILY. RALF ROBERTO
== END 2019-04-26 15:06 | disposition home or self-care (01) | DRG 190 ==
LOC: ED 21:36 → 5E 04-22 00:50 → EDHOLD 04-22 00:50 → 5E 04-23 07:31
PROVIDERS: Physician Assistant; ADMIT Internal Medicine
DX: J44.1 Chronic obstructive pulmonary disease with (acute) exacerbation (principal); I50.43 Acute on chronic combined systolic (congestive) and diastolic (congestive) heart failure; J45.41 Moderate persistent asthma with (acute) exacerbation; E44.1 Mild protein-calorie malnutrition; I11.0 Hypertensive heart disease with heart failure; E87.6 Hypokalemia; R62.7 Adult failure to thrive; M1A.9XX0 Chronic gout, unspecified, without tophus (tophi); E78.2 Mixed hyperlipidemia; I25.10 Atherosclerotic heart disease of native coronary artery without angina pectoris; I35.9 Nonrheumatic aortic valve disorder, unspecified; I48.0 Paroxysmal atrial fibrillation; E66.01 Morbid (severe) obesity due to excess calories; R26.2 Difficulty in walking, not elsewhere classified; E11.9 Type 2 diabetes mellitus without complications; I27.20 Pulmonary hypertension, unspecified; D64.9 Anemia, unspecified; I25.2 Old myocardial infarction; Z90.710 Acquired absence of both cervix and uterus; Z82.49 Family history of ischemic heart disease and other diseases of the circulatory system; Z87.820 Personal history of traumatic brain injury; Z68.33 Body mass index [BMI] 33.0-33.9, adult

== ENCOUNTER 2019-05-13 17:18 | Inpatient (IN) | payer OTHER ==
[~2019-05-13] VITALS: Ht 172.7 cm; Wt 97.1 kg
--- NOTE | ~2019-05-13 | DS ---
[place], [place] DISCHARGE SUMMARY NAME: TALI REDDY [facility] #: [id number] UNIT #: [id number] ROOM: 411 DOCTOR: JOJO COSTELLO MD BIRTHDATE: [birth year] DOS: 05/16/2019 DIAGNOSES: 1. Acute kidney injury, avoid nephrotoxic meds. 2. Chronic kidney disease stage 3. 3. Adult failure to thrive. 4. Chronic obstructive pulmonary disease. 5. Diastolic dysfunction with congestive heart failure in hospitalization in April 2019. 6. History of cardiac arrest 01/2019 with a non-ST elevation myocardial infarction. 7. Anoxic brain injury with memory loss following the cardiac arrest with negative CT of the head this admission. 8. Type 2 diabetes mellitus, insulin-dependent, well controlled. Insulin dosage has been cut back. 9. Paroxysmal atrial fibrillation. 10. Benign hypertension. 11. Mixed hyperlipidemia. 12. Hypokalemia, improved after supplementation. 13. Chronic iron deficiency anemia. MEDICATIONS ON DISCHARGE: Will be allopurinol 100 mg daily, the dosage has been reduced; Lantus 6 units at 5:00 p.m., the dosage has been reduced; lisinopril cut back to 10 mg daily; atorvastatin 80 daily; Plavix 75 daily; Protonix 40 b.i.d.; isosorbide 60 daily; Eliquis 5 b.i.d.; iron 325 b.i.d.; carvedilol 3.125 b.i.d.; Bumex 1 mg daily; potassium 40 daily. HOSPITAL COURSE: The patient is 58 years old, not known to me. The patient comes in after having dizziness and near syncopal episode at home, had a CT of the head in the Emergency Room was negative. The patient was found to have acute kidney injury and was admitted. The patient states that she was placed on an arthritis medicine recently. She does not know the name of the medications. After admission, the patient was given IV fluids and basic metabolic panel was repeated and with IV fluids, the kidney functions have improved and is down to creatinine of 1.39, GFR of 39, which is her baseline. She also was found to be hypokalemic, supplementation was given. Urinalysis did not show any evidence of infection. The patient has been anemic, iron is 46 and ferritin is low at 211.8. The patient is already on iron supplements, continues to be on oral anticoagulants as well as antiplatelet medications. The patient did develop an episode of atrial fibrillation. Heart rate went into the 120s. At that time, she was pretty hypokalemic. This corrected on its own and she has not had any recurrence. She is already on Eliquis. Cardiology consultation was obtained. Dr. Diamond did see the patient and agreed on the continued management. Since then, the patient has become bradycardic and so the dosage of Coreg has been cut back. Because of the kidney failure, the patient's lisinopril dosage has also been reduced. Pressures are controlled. [place], [place] DISCHARGE SUMMARY NAME: TAIL REDDY UNIT #: [id number] ROOM: 411 DOCTOR: JOJO COSTELLO MD BIRTHDATE: [birth year] She has type 2 diabetes mellitus. She was on both oral antidiabetics and insulin. The oral anti-diabetics have been discontinued and insulin dosage has been cut back. Carotid Doppler showed no evidence of any abnormality. The patient is stable and so will be discharged to home today to be followed by Dr. Quick as an outpatient. Visiting nurses have been consulted for home PT, OT. JOJO COSTELLO MD CM:WILLIAM JOJO COSTELLO MD 05/16/1941 interface
--- NOTE | ~2019-05-13 | PR ---
[place], [place] PROGRESS NOTE NAME: TALI REDDY [facility] #: [id number] UNIT #: [id number] ROOM: 411 DOCTOR: JOJO COSTELLO MD BIRTHDATE: [birth year] DOS: 05/15/2019 SUBJECTIVE: The patient is resting, does not have any new complaints. OBJECTIVE: VITAL SIGNS: Graphic trend shows a blood pressure 129/69, pulse of 70, respirations 20, temperature 98.6. LUNGS: Clear. HEART: Regular. ABDOMEN: Obese, soft. EXTREMITIES: Without any edema. LABORATORY DATA: Iron was 46. Ferritin is 211.8. Chest x-ray showed cardiomegaly, chronic, no acute process was noted. No CHF was seen. White cell count is 7.0, hemoglobin 8.3, hematocrit 26.4, platelets 241. BMP: Glucose 119, BUN 27, creatinine 1.39, sodium 146, potassium 4.2, chloride 116, bicarbonate 22. ASSESSMENT AND PLAN: 1. Acute kidney injury, which has improved. 2. Chronic kidney disease, multifactorial. Part of the problem is multiple medications that she is on, could be causing her chronic kidney disease as well as hypotension. The medication dosages have been corrected. 3. Type 2 diabetes mellitus, insulin-dependent. Blood sugars are still controlled, off insulin right now, probably restart insulin lower dose when she goes home. 4. Chronic iron deficiency anemia already on supplements. Hemoglobin remains fairly stable. Hemoccults will be ordered. 5. Hypokalemia. Supplementation was given. 6. Paroxysmal atrial fibrillation, which is resolved. JOJO COSTELLO MD CM:PNTRANS [phone] JOJO COSTELLO MD 05/15/19 1030 interface
--- NOTE | ~2019-05-13 | WRIGHTHP ---
[place], [place] PATIENT HISTORY AND PHYSICAL EXAM NAME: TALI REDDY [facility] #: [id number] UNIT #: [id number] ROOM: 411 DOCTOR: JOJO COSTELLO MD BIRTHDATE: [birth year] DOS: 05/13/2019 HISTORY OF PRESENT ILLNESS: The patient is 58 years old. The patient comes to the Emergency Room yesterday after a fall. She said she became dizzy and lightheaded and fell. She developed some aches and pains in the knee joints and the shoulders. She is pretty forgetful and does not remember the exact chain of events leading to hospitalization. She denies having any chest pains or palpitations. Does not have any fever or chills, does not have any abdominal pain, nausea, any emesis. She stated that she was placed on a new arthritis medicine recently. PAST MEDICAL HISTORY: Significant for: 1. Chronic kidney disease, stage 3. 2. Diastolic congestive heart failure for hospitalization in 04/2019. 3. Chronic obstructive pulmonary disease. 4. History of cardiac arrest in 01/2019 with non-ST elevation [place] and transferred to [facility]. 5. Anoxic brain injury with memory loss. 6. Type 2 diabetes mellitus. 7. Benign hypertension. 8. Mixed hyperlipidemia. MEDICATIONS: She is on are Eliquis 5 b.i.d., Plavix 75 daily, allopurinol 300 daily, atorvastatin 80 daily, Bumex 1 mg daily, Coreg 3.125 b.i.d., iron 325 daily, isosorbide 60 daily, lisinopril 40 daily, Protonix 40 daily, potassium 40 daily, insulin Lantus 30 units daily. SOCIAL HISTORY: Nonsmoker, does not use any alcohol. She lives at home with her daughter. PHYSICAL EXAMINATION: GENERAL: She is awake and alert and oriented. She is not able to remember the chain of events leading to admission, also some past medical history. The patient is not able to give me exact details of her stay in [place]. She is awake and alert, oriented to person and place. VITAL SIGNS: Blood pressure is 123/56, pulse of 70, respirations 18, temperature 98.1. LUNGS: Diminished breath sounds. HEART: Regular. ABDOMEN: Obese, soft. EXTREMITIES: Without any edema. Small abrasion noticed in the left knee from the recent fall. ASSESSMENT AND PLAN: 1. Dizziness with fall, most likely from hypotension. Hold off on antihypertensives right now. We will readjust medications. 2. Acute kidney injury in a patient with chronic kidney disease. The patient states that she was placed on a new arthritis medication. She does not know the name, thinks that it is Celebrex. She also may have had some hypotension with resultant acute tubular necrosis. Again, IV fluids have been ordered. [facility] [place], [place] PATIENT HISTORY AND PHYSICAL EXAM [facility]: [facility] [id number] #: [id number] ROOM: 411 DOCTOR: JOJO COSTELLO MD BIRTHDATE: [birth year] functions are being checked. 3. Hypokalemia. Supplementation will be given. 4. Chronic diastolic dysfunction, no evidence of congestive heart failure. 5. Type 2 diabetes mellitus, insulin-dependent. Blood sugars controlled. Hold off on insulin. JOJO COSTELLO MD CM:HISPHYS:PATIENT HISTORY AND PHYSICAL EXAMINATION 3 7 JOJO COSTELLO MD 05/14/19917 interface
--- NOTE | ~2019-05-13 | PR ---
[place], [place] PROGRESS NOTE [facility] [id number] UNIT #: [id number] ROOM: 411 DOCTOR: JOJO COSTELLO MD BIRTHDATE: [birth year] DOS: 05/16/2019 SUBJECTIVE: The patient is doing well, does not have any new complaints. OBJECTIVE: VITAL SIGNS: Graphic trend shows a pressure of 122/61, pulse of 52, respirations 16, and temperature 98.6. LUNGS: Clear. HEART: Regular. ABDOMEN: Obese, soft. EXTREMITIES: Without any edema. Ultrasound of the carotids were negative. LABORATORY DATA: No labs available this morning. ASSESSMENT AND PLAN: 1. Acute kidney injury, which has improved. 2. Chronic kidney disease, stable. 3. Paroxysmal atrial fibrillation, on sinus rhythm now. 4. Benign hypertension. 5. Coronary artery disease with history of PR, cardiac arrest in 01/2019. 6. Adult failure to thrive. We will arrange for PT, OT and social and visiting nurses at home. JOJO COSTELLO MD CM:PNTRANS [phone] JOJO COSTELLO MD 05/16/19 1026 interface
--- NOTE | ~2019-05-13 | EKG ---
[place], [place] ELECTROCARDIOGRAM REPORT NAME: TALI REDDY UNIT #: [id number] ROOM: 411 DOCTOR: LUDA DRAFT REPORT BIRTHDATE: [birth year] [facility] Test Date: 2019-05-13 Test Time: 17:32:33 Pat Name: TALI REDDY Department: Room: 411 Gender: F Mail Processing Associate: : 1960 Requested By: DINORA ARRINGTON Order Number: [id number] Reading MD: Virginia Diamond MD Measurements Intervals [place] Rate: 64 P: -70 [place]: 127 QRS: -3 QRSD: 113 T: 4 QT: 478 QTc: 494 Interpretive Statements Sinus or ectopic atrial rhythm Inferior infarct, old Compared to ECG 04/22/2019 00:31:22 Ectopic atrial rhythm now present Myocardial infarct finding now present Sinus rhythm no longer present T-wave abnormality no longer present Electronically Signed On 05-14-2019 6:52:14 PDT by Virginia Diamond MD CM:EKGRPT:ELECTROCARDIOGRAM REPORT [id number] DINORA LARES DRAFT REPORT DINORA ARRINGTON M.D.
[~2019-05-13 17:18] MED LIST changes: +BUMETANIDE1 MG PO; +CARVEDILOL3.125 MG PO; +CLOPIDOGREL75 MG PO; +COREG25 MG PO; +ELIQUIS5 M1 PO; +IRON325 M1 PO; +ISOSORBIDE MONO60 MG PO; +KLOR-CON M2020 ME1 PO; +PROTONIX40 MG PO
[2019-05-13 17:19] VITALS: BP 140/65
[2019-05-13 17:59] LABS: BASO # 0.1 10*3/uL (0.0-0.1); BASO % 0.7 % (0.0-1.0); EOS # 0.1 10*3/uL (0.0-0.4); EOS % 1.6 % (1.0-4.0); HEMATOCRIT 32.2 % (37.0-47.0); HEMOGLOBIN 10.5 g/dl (12.0-16.0); LYMPH # 3.6 10*3/uL (1.3-4.4); LYMPH % 43.8 % (27.0-41.0); MEAN CELL VOLUME 93.6 fl (81.0-99.0); MEAN CORPUSCULAR HGB 30.5 pg (27.0-31.0); MEAN CORPUSCULAR HGB CONC 32.6 g/dl (33.0-37.0); MEAN PLATELET VOLUME 10.8 fl (9.6-12.3); MONO # 0.4 10*3/uL (0.1-1.0); MONO % 4.5 % (3.0-9.0); NEUT # 4.1 10*3/uL (2.3-7.9); NEUT % 49.3 % (47.0-73.0); PLATELET COUNT AUTOMATED 317 10*3/uL (130-400); RED BLOOD COUNT 3.44 10*6/uL (4.10-5.10); RED CELL DISTRI WIDTH 15.7 % (0-14.5); WHITE BLOOD COUNT 8.3 10*3/uL (4.8-10.8)
[2019-05-13 18:16] LABS: ALBUMIN 3.5 gm/dl (3.1-4.5); CREATININE 2.69 mg/dL (0.55-1.02); POTASSIUM 3.7 mmol/L (3.5-5.1); TOTAL PROTEIN 8.4 gm/dL (6.4-8.2)
[2019-05-13 18:17] LABS: TROPONIN I 0.021 ng/ml (<0.045)
[2019-05-13 19:05] VITALS: BP 123/48; BP 123/55
[2019-05-13 20:10] VITALS: BP 116/59
--- NOTE | 2019-05-13 20:10 | NUR ---
A 58, admitted to , under the services of JOJO Hoskins MD with a diagnosis of DIZZINESS,ARF,ABRASION,FALL. Chief complaint is BECAME DIZZY AND FELL AT HOME. Patient arrived via stretcher from ER. Monitor applied. Initial assessment completed. Vital signs taken and recorded. JOJO HOSKINS MD notified of admission to the unit. Orders received. See assessment for past medical history, medications and allergies. Patient and/or family oriented to unit. [facility]. Clothing/patient valuable form completed. ANUJ HSU
[2019-05-14] VITALS: BP 123/56
--- NOTE | 2019-05-14 | NUR ---
RESTING ON SIDE WITH EYES CLOSED. IV FLUIDS INFUSING ORDERED. CALL LIGHT WITHIN REACH. BED IN LOW LOCKED POSITION; BED ALARM ON.
--- NOTE | 2019-05-14 04:00 | NUR ---
RESTING IN BED WITH EYES CLOSED. IV FLUIDS INFUSING ORDERED. NO DISTRESS NOTED; CALL LIGHT WITHIN REACH.
[2019-05-14 05:54] LABS: BASO % 0.4 % (0.0-1.0); EOS # 0.2 10*3/uL (0.0-0.4); HEMATOCRIT 27.8 % (37.0-47.0); HEMOGLOBIN 8.8 g/dl (12.0-16.0); LYMPH # 3.9 10*3/uL (1.3-4.4); LYMPH % 48.6 % (27.0-41.0); MEAN CELL VOLUME 96.2 fl (81.0-99.0); MEAN CORPUSCULAR HGB 30.4 pg (27.0-31.0); MEAN CORPUSCULAR HGB CONC 31.7 g/dl (33.0-37.0); MEAN PLATELET VOLUME 11.7 fl (9.6-12.3); MONO # 0.5 10*3/uL (0.1-1.0); MONO % 5.6 % (3.0-9.0); NEUT # 3.5 10*3/uL (2.3-7.9); NEUT % 43.3 % (47.0-73.0); PLATELET COUNT AUTOMATED 268 10*3/uL (130-400); RED BLOOD COUNT 2.89 10*6/uL (4.10-5.10); RED CELL DISTRI WIDTH 15.5 % (0-14.5)
--- NOTE | 2019-05-14 06:00 | NUR ---
BLOOD SUGAR 69; TOOK PATIENT ORANGE JUICE.
[2019-05-14 06:08] LABS: POTASSIUM 3.1 mmol/L (3.5-5.1)
[2019-05-14 08:00] VITALS: BP 123/56
--- NOTE | 2019-05-14 08:00 | NUR ---
IN TO ROOM. PT SITTING UP IN BED EATING BREAKFAST. PT IS PLEASANT AND COOPERATIVE, ALERT AND ORIENTED. NO STATED COMPLAINTS AT THIS TIME. DENIES PAIN. RESPIRATIONS ARE EASY AND REGULAR. BED IN LOWEST LOCKED POSITION AND CALL LIGHT WITHIN REACH. WILL CONTINUE TO MONITOR.
[2019-05-14] MEDS ORDERED: BASAG SOL SC (08:17)
--- NOTE | 2019-05-14 10:22 | NUR ---
DR. BEASLEY NOTIFIED OF CONSULT
[2019-05-14 12:00] VITALS: BP 137/64
--- NOTE | 2019-05-14 12:00 | NUR ---
FAMILY IN ROOM WITH PATIENT. NO S/S OF DISTRESS OR SOB. NO STATED COMPLAINTS. CALL LIGHT WITHIN REACH AND BED ALARM ON. WILL CONTINUE TO MONITOR.
[2019-05-14 16:00] VITALS: BP 119/51
[2019-05-14 16:38] LABS: BILIRUBIN NEGATIVE (NEGATIVE); BLOOD NEGATIVE (NEGATIVE); CLARITY SL CLOUDY (CLEAR); COLOR YELLOW (YELLOW); GLUCOSE NEGATIVE (NEGATIVE); KETONE NEGATIVE (NEGATIVE); LEUKO ESTERASE NEGATIVE (NEGATIVE); NITRITE NEGATIVE (NEGATIVE); SPECIFIC GRAVITY 1.015 (1.005-1.030); UROBILINOGEN 0.2 E.U./dl (0.2-1.0)
[2019-05-14 16:48] LABS: WBC 0-2 wbc/hpf (0-5)
[2019-05-14 20:00] VITALS: BP 138/58
--- NOTE | 2019-05-14 20:30 | NUR ---
PATIENT IS RESTING IN BED WITH EASY AND REGULAR RESPERS ON ROOM AIR WITH FAMILY AT BEDSIDE. ASSESSMENT IS COMPLETE WITH NO S/S OF DISTRESS NOTED. PATIENT DOES C/O HIP "BOTHERING HER". BED IS LOW, LOCKED, ALARMED, AND CALL LIGHT IS WITHIN REACH. BLOOD GLUCOSE 173. WILL CONTINUE TO MONITOR, SEE SHIFT ASSESSMENT.
[2019-05-15] VITALS: BP 129/69
[2019-05-15 06:18] LABS: BASO % 0.3 % (0.0-1.0); EOS # 0.2 10*3/uL (0.0-0.4); EOS % 2.4 % (1.0-4.0); HEMATOCRIT 26.4 % (37.0-47.0); HEMOGLOBIN 8.3 g/dl (12.0-16.0); LYMPH # 3.5 10*3/uL (1.3-4.4); LYMPH % 49.1 % (27.0-41.0); MEAN CELL VOLUME 96.7 fl (81.0-99.0); MEAN CORPUSCULAR HGB 30.4 pg (27.0-31.0); MEAN CORPUSCULAR HGB CONC 31.4 g/dl (33.0-37.0); MEAN PLATELET VOLUME 11.7 fl (9.6-12.3); MONO # 0.4 10*3/uL (0.1-1.0); MONO % 5.1 % (3.0-9.0); PLATELET COUNT AUTOMATED 241 10*3/uL (130-400); RED BLOOD COUNT 2.73 10*6/uL (4.10-5.10); RED CELL DISTRI WIDTH 15.7 % (0-14.5)
[2019-05-15 06:32] LABS: CREATININE 1.39 mg/dL (0.55-1.02)
[2019-05-15 06:42] LABS: POTASSIUM 4.2 mmol/L (3.5-5.1)
--- NOTE | 2019-05-15 09:00 | NUR ---
Forging Roll Operator in to talk to patient. Patient states lives at home with her daughter and granddaughter. There are 8 steps in the home. Physician: Dr. Shashi Quick Pharmacy: [facility] Home health services: none Patient's level of ADLs: MINIMAL ASSIST Patient has working utilities: yes DME: none Follow-up physician's appointment after d/c: she prefers to make her own follow up appt after discharge Does patient want to access PORTAL?: no Discharge plan discussed with patient. She lives currently with her daughter and granddaughter. She needs minimal assistance with her ADLs and ambulation. Discussed home health care services and she denies any home needs at this time. Asked about her granddaughter looking into getting a home health aide and she stated "I don't think so." When medically stable she will be discharged to home. LILLY BRENNER
--- NOTE | 2019-05-15 09:06 | NUR ---
TALI REDDY [id number] Please refer to the physician's history and physical for past medical history, comorbid conditions, and allergies. Diagnosis: DIZZINESS ARF ABRASION FALL Placido Score: 19,LOW OR NO RISK WOUND DESCRIPTIONS: Wound Number: 1 Location of the wound: RIGHT THUMB Type of wound: ABRASION Thickness: Partial Size: 0.8cm X 1cm X 0.1cm Tunneling: NONE Undermining: NONE Sinus Tract: NONE Presence of Exudate: Serous Amount: Light Color: Red Odor: None Periwound Skin Appearance: Normal Wound edges: APPROXIMATED Pain (associated with wound): DENIED AT TIME OF ASSESSMENT How does patient state this happened? PATIENT STATES THAT SHE FELL AT HOME ON HER FRONT PORCH. If wound is on legs/feet or hands, capillary refill time, pulses, color temp, sensation: CAP REFILL < 3 SECONDS. Wound Number: 2 Location of the wound: LEFT ELBOW Type of wound: ABRASION Thickness: Partial Size: 4.5cm X 4cm X 0.1cm Tunneling: NONE Undermining: NONE Sinus Tract: NONE Presence of Exudate: Serous sanguineous Amount: Light Color: Red Odor: None Periwound Skin Appearance: Normal Wound edges: APPROXIMATED Pain (associated with wound): DENIED AT TIME OF ASSESSMENT How does patient state this happened? PATIENT STATES THAT SHE FELL AT HOME ON HER FRONT PORCH. WOUND #3 LEFT KNEE INTACT SCAB. NO DRAINAGE. NO ERYTHEMA. PATIENT DENIES PAIN TO THIS AREA. Surface the patient is resting on: Isoflex SKIN PREVENTION RECOMMENDATION: 1. Pressure redistribution support surface as appropriate 2. Elevate heels 3. Remove boots/TEDS every shift and reapply 4. Head of bed 30 degrees as tolerated 5. Assess nutrition and hydration 6. Manage moisture 7. Avoid the use of containment devices while in bed 8. Use absorptive products on surfaces limit layers of linens on bed 9. Turn and reposition every 1-2 hours in bed and every 1 hour in chair as tolerated 10. Weight shifts every 15 minutes while up in chair 11. Offloading with pillows or device to keep heels elevated off bed 12. Monitor skin at least every shift 13. Inspect under medical devices twice a day WOUND TREATMENT RECOMMENDATIONS: DRESSING CHANGE: CLEANSE LEFT ELBOW AND RIGHT THUMB WITH NSS APPLY BACITRACIN AND COVER WITH BANDAID BID.
--- NOTE | 2019-05-15 09:13 | NUR ---
PHYSICAL THERAPY Nursing screen received and chart reviewed. Please order PT evaluation if functional mobility declines. Thank you. Seema Bolaños,PT,DPT
[2019-05-15 12:00] VITALS: BP 124/53
[2019-05-15 16:00] VITALS: BP 126/49
--- NOTE | 2019-05-15 17:40 | NUR ---
Nursing screen received and chart review completed. Patient admited with dizziness and fall probable from hypotension. Patient lives w family who assists her with her ADLs. IF patient should have a decline in ADLs and safety in mobility refer to OT for an evaluation. Thank you. Faith Stevens OTr//
[2019-05-15 20:00] VITALS: BP 121/50
[2019-05-16] VITALS: BP 122/61
[2019-05-16 08:00] VITALS: BP 137/53
[2019-05-16] MEDS ORDERED: ALLOPURINOL100 MG PO (08:23)
[2019-05-16] MEDS ORDERED: LANTUS SOL100 UNIT/1 SQ (08:24)
--- NOTE | 2019-05-16 08:46 | NUR ---
Recommend follow up for wound care in outpatient setting patient refused at this time.
--- NOTE | 2019-05-16 10:00 | NUR ---
Reproduction Machine Loader in to see patient. No new needs or request at this time. She denies any home needs. When medically stable she will be discharged to home. Daughter/granddaughter to transport.
--- NOTE | 2019-05-16 10:26 | NUR ---
Nutritional Support Services Note: Pt is eating 100% of meals. She receives an 1800cal diabetic diet. She recieves yogurt with every meal. Diet instruction was given last month, She has no further questions. Wound noted. No other nutrition intervention needed at this time. Encouraged adequate calorie and protein intake. Will follow as needed. Sowmya Patel Rdn Ld
[2019-05-16 12:00] VITALS: BP 118/65
[2019-05-16 16:00] VITALS: BP 125/55
[2019-05-16 20:00] VITALS: BP 138/60
--- NOTE | 2019-05-16 21:05 | NUR ---
Discharge instructions reviewed with patient/family. Patient receptive and verbalizes understanding. Follow-up care arranged. Written instructions given to patient/family. Patient off floor via wheelchair with family.
== END 2019-05-16 21:10 | disposition home or self-care (01) | DRG 314 ==
LOC: ED 17:18 → EDHOLD 19:15 → 4E 19:15
PROVIDERS: Nurse Practitioner Family; ADMIT Internal Medicine
DX: I95.9 Hypotension, unspecified (principal); N17.0 Acute kidney failure with tubular necrosis; I13.0 Hypertensive heart and chronic kidney disease with heart failure and stage 1 through stage 4 chronic kidney disease, or unspecified chronic kidney disease; I50.32 Chronic diastolic (congestive) heart failure; I48.0 Paroxysmal atrial fibrillation; N18.3 Chronic kidney disease, stage 3 (moderate); E11.22 Type 2 diabetes mellitus with diabetic chronic kidney disease; E87.6 Hypokalemia; R62.7 Adult failure to thrive; D50.9 Iron deficiency anemia, unspecified; E78.2 Mixed hyperlipidemia; S50.812A Abrasion of left forearm, initial encounter; S80.212A Abrasion, left knee, initial encounter; J44.9 Chronic obstructive pulmonary disease, unspecified; R00.1 Bradycardia, unspecified; I25.10 Atherosclerotic heart disease of native coronary artery without angina pectoris; W18.30XA Fall on same level, unspecified, initial encounter; Y93.89 Activity, other specified; Y92.89 Other specified places as the place of occurrence of the external cause; Y99.8 Other external cause status; Z79.4 Long term (current) use of insulin; Z86.74 Personal history of sudden cardiac arrest; I25.2 Old myocardial infarction; Z90.710 Acquired absence of both cervix and uterus; Z82.49 Family history of ischemic heart disease and other diseases of the circulatory system; Z83.3 Family history of diabetes mellitus; Z87.01 Personal history of pneumonia (recurrent); Z79.899 Other long term (current) drug therapy; Z68.31 Body mass index [BMI] 31.0-31.9, adult

== ENCOUNTER 2021-02-04 12:10 | Emergency (ER) | payer OTHER ==
[~2021-02-04] VITALS: Ht 172.7 cm; Wt 86.2 kg
[~2021-02-04 12:10] MED LIST changes: +ALLOPURINOL100 MG PO; +BASAG SOL SC
== END 2021-02-04 14:30 | disposition home or self-care (01) ==
LOC: ED 12:10
DX: S01.512A Laceration without foreign body of oral cavity, initial encounter (principal); Z79.899 Other long term (current) drug therapy; Z90.711 Acquired absence of uterus with remaining cervical stump; X58.XXXA Exposure to other specified factors, initial encounter; Y93.89 Activity, other specified; Y92.89 Other specified places as the place of occurrence of the external cause; Y99.8 Other external cause status

== ENCOUNTER 2021-02-04 20:56 | Emergency (ER) | payer OTHER ==
[~2021-02-04] VITALS: Ht 172.7 cm; Wt 86.2 kg
[2021-02-04 21:45] LABS: BASO # 0.1 10*3/uL (0.0-0.1); BASO % 0.7 % (0.0-1.0); EOS # 0.1 10*3/uL (0.0-0.4); EOS % 0.9 % (1.0-4.0); HEMATOCRIT 29.7 % (37.0-47.0); LYMPH # 3.2 10*3/uL (1.3-4.4); LYMPH % 41.5 % (27.0-41.0); MEAN CELL VOLUME 97.1 fl (81.0-99.0); MEAN CORPUSCULAR HGB 31.7 pg (27.0-31.0); MEAN CORPUSCULAR HGB CONC 32.7 g/dl (33.0-37.0); MEAN PLATELET VOLUME 10.8 fl (9.6-12.3); MONO # 0.5 10*3/uL (0.1-1.0); NEUT # 3.9 10*3/uL (2.3-7.9); NEUT % 50.8 % (47.0-73.0); PLATELET COUNT AUTOMATED 244 10*3/uL (130-400); RED BLOOD COUNT 3.06 10*6/uL (4.10-5.10); RED CELL DISTRI WIDTH 12.9 % (0-14.5); WHITE BLOOD COUNT 7.7 10*3/uL (4.8-10.8)
== END 2021-02-04 22:25 | disposition home or self-care (01) ==
LOC: ED 20:56
PROVIDERS: Internal Medicine
DX: S01.512A Laceration without foreign body of oral cavity, initial encounter (principal); Z79.899 Other long term (current) drug therapy; Z79.4 Long term (current) use of insulin; Z90.711 Acquired absence of uterus with remaining cervical stump; X58.XXXA Exposure to other specified factors, initial encounter; Y93.89 Activity, other specified; Y92.89 Other specified places as the place of occurrence of the external cause; Y99.8 Other external cause status

== ENCOUNTER 2021-04-24 09:37 | Inpatient (IN) | payer OTHER ==
[~2021-04-24] VITALS: Ht 172.7 cm; Wt 82.6 kg
[2021-04-24] VITALS (8 sets, daily range): BP systolic 96–133; BP diastolic 41–62
[2021-04-24 10:16] LABS: BASO % 0.2 % (0.0-1.0); EOS % 0.1 % (1.0-4.0); HEMATOCRIT 29.6 % (37.0-47.0); LYMPH # 2.1 10*3/uL (1.3-4.4); MEAN CELL VOLUME 98.3 fl (81.0-99.0); MEAN CORPUSCULAR HGB 31.2 pg (27.0-31.0); MEAN CORPUSCULAR HGB CONC 31.8 g/dl (33.0-37.0); MEAN PLATELET VOLUME 11.2 fl (9.6-12.3); MONO # 0.3 10*3/uL (0.1-1.0); MONO % 2.9 % (3.0-9.0); NEUT # 9.3 10*3/uL (2.3-7.9); NEUT % 78.5 % (47.0-73.0); PLATELET COUNT AUTOMATED 286 10*3/uL (130-400); RED BLOOD COUNT 3.01 10*6/uL (4.10-5.10); RED CELL DISTRI WIDTH 13.4 % (0-14.5); WHITE BLOOD COUNT 11.9 10*3/uL (4.8-10.8)
[2021-04-24 10:36] LABS: ALBUMIN 3.3 gm/dl (3.1-4.5); ALKALINE PHOSPHATASE 99 U/L (45-117); BUN 31 mg/dl (7-24); CHLORIDE 110 mmol/L (98-107); CREATININE 1.06 mg/dL (0.55-1.02); POTASSIUM 3.6 mmol/L (3.5-5.1); SGOT/AST 10 IU/L (3-35); SGPT/ALT 17 U/L (12-78); SODIUM 141 mmol/L (136-145); TOTAL PROTEIN 7.5 gm/dL (6.4-8.2)
[2021-04-24 10:37] LABS: TROPONIN I < 0.015 ng/ml (<0.045)
[2021-04-24 15:42] LABS: HEMATOCRIT 25.7 % (37.0-47.0); MEAN CELL VOLUME 98.5 fl (81.0-99.0); MEAN CORPUSCULAR HGB CONC 31.5 g/dl (33.0-37.0); MEAN PLATELET VOLUME 11.5 fl (9.6-12.3); PLATELET COUNT AUTOMATED 241 10*3/uL (130-400); RED BLOOD COUNT 2.61 10*6/uL (4.10-5.10); RED CELL DISTRI WIDTH 13.3 % (0-14.5); WHITE BLOOD COUNT 9.9 10*3/uL (4.8-10.8)
[2021-04-24 15:55] LABS: BUN 31 mg/dl (7-24); CHLORIDE 111 mmol/L (98-107); CREATININE 1.09 mg/dL (0.55-1.02); POTASSIUM 3.4 mmol/L (3.5-5.1); SODIUM 142 mmol/L (136-145)
[2021-04-24 16:02] LABS: ATYPICAL LYMPHS 1 % (0-0); TOTAL CELLS COUNTED 100 #CELLS
[2021-04-24 16:03] LABS: ACANTHOCYTES FEW; BURR CELLS MODERATE; PLATELET SUFFICIENCY NORMAL (NORMAL)
[2021-04-24 16:04] LABS: SCHISTOCYTES FEW
[2021-04-25] VITALS: BP 154/59
[2021-04-25 07:57] VITALS: BP 138/56
[2021-04-25 08:27] LABS: IRON 42 ug/dL (50-170); TOTAL IRON BINDING CAPACITY 191 ug/dl (250-450)
[2021-04-25 09:31] LABS: FERRITIN 229.5 ng/mL (10.0-291.0)
[2021-04-25 11:16] VITALS: BP 104/57
[2021-04-25 16:00] VITALS: BP 110/55
[2021-04-25 20:00] VITALS: BP 117/55
[2021-04-26] VITALS: BP 112/43
[2021-04-26 06:30] LABS: BASO % 0.4 % (0.0-1.0); EOS # 0.2 10*3/uL (0.0-0.4); EOS % 2.2 % (1.0-4.0); HEMATOCRIT 23.1 % (37.0-47.0); LYMPH # 3.9 10*3/uL (1.3-4.4); LYMPH % 47.6 % (27.0-41.0); MEAN CELL VOLUME 97.5 fl (81.0-99.0); MEAN CORPUSCULAR HGB 32.1 pg (27.0-31.0); MEAN CORPUSCULAR HGB CONC 32.9 g/dl (33.0-37.0); MEAN PLATELET VOLUME 11.4 fl (9.6-12.3); MONO # 0.4 10*3/uL (0.1-1.0); MONO % 4.9 % (3.0-9.0); NEUT # 3.7 10*3/uL (2.3-7.9); NEUT % 44.7 % (47.0-73.0); PLATELET COUNT AUTOMATED 214 10*3/uL (130-400); RED BLOOD COUNT 2.37 10*6/uL (4.10-5.10); RED CELL DISTRI WIDTH 13.5 % (0-14.5); WHITE BLOOD COUNT 8.2 10*3/uL (4.8-10.8)
[2021-04-26 06:32] LABS: CHLORIDE 112 mmol/L (98-107); CREATININE 0.83 mg/dL (0.55-1.02); POTASSIUM 3.4 mmol/L (3.5-5.1); SODIUM 143 mmol/L (136-145)
[2021-04-26 06:41] LABS: BUN 19 mg/dl (7-24)
[2021-04-26 08:00] VITALS: BP 138/72
[2021-04-26 12:00] VITALS: BP 128/63
[2021-04-26 16:00] VITALS: BP 120/77
[2021-04-26 20:00] VITALS: BP 131/64
[2021-04-27] VITALS (9 sets, daily range): BP systolic 111–138; BP diastolic 54–77
[2021-04-27 05:49] LABS: BUN 17 mg/dl (7-24); CHLORIDE 113 mmol/L (98-107); CREATININE 0.86 mg/dL (0.55-1.02); POTASSIUM 3.8 mmol/L (3.5-5.1); SODIUM 143 mmol/L (136-145)
[2021-04-27 06:14] LABS: BASO % 0.4 % (0.0-1.0); EOS # 0.2 10*3/uL (0.0-0.4); EOS % 1.8 % (1.0-4.0); HEMATOCRIT 22.3 % (37.0-47.0); LYMPH # 3.4 10*3/uL (1.3-4.4); LYMPH % 40.2 % (27.0-41.0); MEAN CORPUSCULAR HGB 30.9 pg (27.0-31.0); MEAN CORPUSCULAR HGB CONC 31.8 g/dl (33.0-37.0); MEAN PLATELET VOLUME 11.5 fl (9.6-12.3); MONO # 0.5 10*3/uL (0.1-1.0); MONO % 5.6 % (3.0-9.0); NEUT # 4.3 10*3/uL (2.3-7.9); NEUT % 51.8 % (47.0-73.0); PLATELET COUNT AUTOMATED 220 10*3/uL (130-400); RED CELL DISTRI WIDTH 13.6 % (0-14.5); WHITE BLOOD COUNT 8.4 10*3/uL (4.8-10.8)
[2021-04-27 16:40] LABS: HEMATOCRIT 27.2 % (37.0-47.0)
[2021-04-28] VITALS: BP 136/60
[2021-04-28 05:58] LABS: BASO % 0.4 % (0.0-1.0); EOS # 0.2 10*3/uL (0.0-0.4); EOS % 1.9 % (1.0-4.0); HEMATOCRIT 25.1 % (37.0-47.0); LYMPH # 3.5 10*3/uL (1.3-4.4); LYMPH % 35.2 % (27.0-41.0); MEAN CELL VOLUME 95.8 fl (81.0-99.0); MEAN CORPUSCULAR HGB 31.3 pg (27.0-31.0); MEAN CORPUSCULAR HGB CONC 32.7 g/dl (33.0-37.0); MEAN PLATELET VOLUME 11.5 fl (9.6-12.3); MONO # 0.6 10*3/uL (0.1-1.0); MONO % 5.7 % (3.0-9.0); NEUT # 5.6 10*3/uL (2.3-7.9); NEUT % 56.6 % (47.0-73.0); PLATELET COUNT AUTOMATED 218 10*3/uL (130-400); RED BLOOD COUNT 2.62 10*6/uL (4.10-5.10); RED CELL DISTRI WIDTH 14.7 % (0-14.5); WHITE BLOOD COUNT 9.8 10*3/uL (4.8-10.8)
[2021-04-28 06:22] LABS: BUN 19 mg/dl (7-24); CHLORIDE 112 mmol/L (98-107); CREATININE 1.04 mg/dL (0.55-1.02); POTASSIUM 3.7 mmol/L (3.5-5.1); SODIUM 144 mmol/L (136-145)
[2021-04-28 08:00] VITALS: BP 138/62
[2021-04-28 12:00] VITALS: BP 127/50
[2021-04-28 16:00] VITALS: BP 119/62
[2021-04-28 16:30] LABS: HEMATOCRIT 25.6 % (37.0-47.0)
[2021-04-28 16:39] LABS: BACTERIA TRACE; BILIRUBIN Negative (Negative); BLOOD Negative (Negative); CLARITY Clear (Clear); COLOR Yellow (Yellow); GLUCOSE Negative (Negative); KETONE Negative (Negative); LEUKO ESTERASE Negative (Negative); MUCOUS 1+; NITRITE Negative (Negative); RBC 0-2 rbc/hpf (0-2); WBC 0-2 wbc/hpf (0-5); YEAST 1+
[2021-04-28 20:00] VITALS: BP 132/64
[2021-04-29] VITALS: BP 125/55
[2021-04-29 06:06] LABS: BASO % 0.5 % (0.0-1.0); EOS # 0.1 10*3/uL (0.0-0.4); EOS % 1.6 % (1.0-4.0); HEMATOCRIT 25.6 % (37.0-47.0); LYMPH # 3.4 10*3/uL (1.3-4.4); LYMPH % 38.4 % (27.0-41.0); MEAN CELL VOLUME 95.2 fl (81.0-99.0); MEAN CORPUSCULAR HGB 30.1 pg (27.0-31.0); MEAN CORPUSCULAR HGB CONC 31.6 g/dl (33.0-37.0); MEAN PLATELET VOLUME 11.3 fl (9.6-12.3); MONO # 0.5 10*3/uL (0.1-1.0); NEUT # 4.7 10*3/uL (2.3-7.9); NEUT % 53.3 % (47.0-73.0); PLATELET COUNT AUTOMATED 249 10*3/uL (130-400); RED BLOOD COUNT 2.69 10*6/uL (4.10-5.10); RED CELL DISTRI WIDTH 14.7 % (0-14.5); WHITE BLOOD COUNT 8.9 10*3/uL (4.8-10.8)
[2021-04-29 06:14] LABS: ALBUMIN 2.6 gm/dl (3.1-4.5); ALKALINE PHOSPHATASE 90 U/L (45-117); BUN 20 mg/dl (7-24); CHLORIDE 110 mmol/L (98-107); CREATININE 1.04 mg/dL (0.55-1.02); POTASSIUM 3.7 mmol/L (3.5-5.1); SGOT/AST 16 IU/L (3-35); SGPT/ALT 21 U/L (12-78); SODIUM 139 mmol/L (136-145); TOTAL PROTEIN 6.4 gm/dL (6.4-8.2)
[2021-04-29 08:00] VITALS: BP 114/60
[2021-04-29 12:00] VITALS: BP 139/89
[2021-04-29 16:00] VITALS: BP 127/60
[2021-04-29 20:00] VITALS: BP 107/58
[2021-04-30] VITALS: BP 105/51
[2021-04-30 05:58] LABS: BUN 22 mg/dl (7-24); CHLORIDE 109 mmol/L (98-107); CREATININE 1.02 mg/dL (0.55-1.02); POTASSIUM 3.7 mmol/L (3.5-5.1); SODIUM 140 mmol/L (136-145)
[2021-04-30 06:06] LABS: BASO % 0.5 % (0.0-1.0); EOS # 0.2 10*3/uL (0.0-0.4); EOS % 1.8 % (1.0-4.0); HEMATOCRIT 25.9 % (37.0-47.0); LYMPH # 3.4 10*3/uL (1.3-4.4); LYMPH % 40.3 % (27.0-41.0); MEAN CELL VOLUME 95.6 fl (81.0-99.0); MEAN CORPUSCULAR HGB 30.3 pg (27.0-31.0); MEAN CORPUSCULAR HGB CONC 31.7 g/dl (33.0-37.0); MEAN PLATELET VOLUME 11.3 fl (9.6-12.3); MONO # 0.5 10*3/uL (0.1-1.0); NEUT # 4.3 10*3/uL (2.3-7.9); NEUT % 51.2 % (47.0-73.0); PLATELET COUNT AUTOMATED 268 10*3/uL (130-400); RED BLOOD COUNT 2.71 10*6/uL (4.10-5.10); RED CELL DISTRI WIDTH 14.5 % (0-14.5); WHITE BLOOD COUNT 8.5 10*3/uL (4.8-10.8)
[2021-04-30 08:00] VITALS: BP 120/70
[2021-04-30 12:00] VITALS: BP 111/66
[2021-04-30 16:00] VITALS: BP 133/62
[2021-04-30 20:00] VITALS: BP 137/56
[2021-05-01] VITALS: BP 131/58
[2021-05-01 08:00] VITALS: BP 132/56
[2021-05-01 12:00] VITALS: BP 130/58
[2021-05-01 16:00] VITALS: BP 133/56
[2021-05-01 20:00] VITALS: BP 152/77
[2021-05-02] VITALS (9 sets, daily range): BP systolic 118–160; BP diastolic 51–79
[2021-05-02] MEDS ORDERED: AUGMENTIN 875-875 MG PO (05:04)
[2021-05-02 06:10] LABS: BUN 18 mg/dl (7-24); CHLORIDE 107 mmol/L (98-107); CREATININE 0.95 mg/dL (0.55-1.02); POTASSIUM 3.1 mmol/L (3.5-5.1); SODIUM 135 mmol/L (136-145)
[2021-05-02 06:11] LABS: BASO % 0.3 % (0.0-1.0); EOS # 0.1 10*3/uL (0.0-0.4); EOS % 1.2 % (1.0-4.0); HEMATOCRIT 27.7 % (37.0-47.0); LYMPH # 3.1 10*3/uL (1.3-4.4); LYMPH % 35.7 % (27.0-41.0); MEAN CELL VOLUME 95.2 fl (81.0-99.0); MEAN CORPUSCULAR HGB 31.6 pg (27.0-31.0); MEAN CORPUSCULAR HGB CONC 33.2 g/dl (33.0-37.0); MEAN PLATELET VOLUME 10.7 fl (9.6-12.3); MONO # 0.5 10*3/uL (0.1-1.0); NEUT # 4.8 10*3/uL (2.3-7.9); NEUT % 55.8 % (47.0-73.0); PLATELET COUNT AUTOMATED 313 10*3/uL (130-400); RED BLOOD COUNT 2.91 10*6/uL (4.10-5.10); RED CELL DISTRI WIDTH 14.2 % (0-14.5); WHITE BLOOD COUNT 8.6 10*3/uL (4.8-10.8)
[2021-05-03] VITALS: BP 133/58
[2021-05-03] MEDS ORDERED: NORVASC2.5 MG PO (04:47)
[2021-05-03 08:00] VITALS: BP 152/59
[2021-05-03 12:00] VITALS: BP 150/54
[2021-05-03 16:00] VITALS: BP 154/56
[2021-05-03 20:00] VITALS: BP 141/62
[2021-05-04] VITALS: BP 142/57
[2021-05-04 08:00] VITALS: BP 134/47
[2021-05-04 08:50] LABS: BUN 14 mg/dl (7-24); CHLORIDE 110 mmol/L (98-107); POTASSIUM 3.9 mmol/L (3.5-5.1); SODIUM 139 mmol/L (136-145)
== END 2021-05-04 11:42 | disposition home health service (06) | DRG 663 ==
LOC: ED 09:37 → EDHOLD 12:48 → 5E 12:48
PROVIDERS: Emergency Medicine; Internal Medicine; Internal Medicine Gastroenterology; ADMIT Internal Medicine; ATTEND Internal Medicine
PROC: 30233N1 Transfusion of Nonautologous Red Blood Cells into Peripheral Vein, Percutaneous Approach (ICD-10-PCS; 2021-04-27)
PROC: 0DB78ZX Excision of Stomach, Pylorus, Via Natural or Artificial Opening Endoscopic, Diagnostic (ICD-10-PCS; principal; 2021-05-02)
DX: D50.9 Iron deficiency anemia, unspecified (principal); N39.0 Urinary tract infection, site not specified; K29.70 Gastritis, unspecified, without bleeding; I95.9 Hypotension, unspecified; N17.9 Acute kidney failure, unspecified; I49.5 Sick sinus syndrome; E87.2 Acidosis; B95.2 Enterococcus as the cause of diseases classified elsewhere; R62.7 Adult failure to thrive; I12.9 Hypertensive chronic kidney disease with stage 1 through stage 4 chronic kidney disease, or unspecified chronic kidney disease; I25.10 Atherosclerotic heart disease of native coronary artery without angina pectoris; N18.31 Chronic kidney disease, stage 3a; E11.22 Type 2 diabetes mellitus with diabetic chronic kidney disease; I65.22 Occlusion and stenosis of left carotid artery; F03.90 Unspecified dementia, unspecified severity, without behavioral disturbance, psychotic disturbance, mood disturbance, and anxiety; E78.2 Mixed hyperlipidemia; I48.0 Paroxysmal atrial fibrillation; K44.9 Diaphragmatic hernia without obstruction or gangrene; Z20.822 Contact with and (suspected) exposure to COVID-19; T44.7X5A Adverse effect of beta-adrenoreceptor antagonists, initial encounter; Z53.29 Procedure and treatment not carried out because of patient's decision for other reasons; E87.6 Hypokalemia; Z79.4 Long term (current) use of insulin; Z86.74 Personal history of sudden cardiac arrest; Z90.710 Acquired absence of both cervix and uterus; Z82.49 Family history of ischemic heart disease and other diseases of the circulatory system; Z83.3 Family history of diabetes mellitus; I25.2 Old myocardial infarction; Y92.89 Other specified places as the place of occurrence of the external cause; Z86.73 Personal history of transient ischemic attack (TIA), and cerebral infarction without residual deficits; Z68.27 Body mass index [BMI] 27.0-27.9, adult

== ENCOUNTER 2022-12-10 14:19 | Emergency (ER) | payer MEDICARE ==
[~2022-12-10] VITALS: Ht 172.7 cm; Wt 102.1 kg
[~2022-12-10 14:19] MED LIST changes: +ALDACTONE25 M1 PO; +ALLOPURINOL300 MG PO; +AMIODARONE HYD200 MG PO; +AUGMENTIN 875-875 MG PO; +CARAFATE1 G1 PO; +GOOD SENSE ASPI81 M1 PO; +METFORMIN HYDR500 MG PO; +METOCLOPRAMIDE H5 M1 PO; +MIRTAZAPINE15 M2 PO; +VITAMIN D31250 MCG PO
[2022-12-10 16:44] LABS: BASO % 0.3 % (0.0-1.0); EOS % 0.5 % (1.0-4.0); HEMATOCRIT 33.6 % (37.0-47.0); LYMPH # 1.6 10*3/uL (1.3-4.4); LYMPH % 26.1 % (27.0-41.0); MEAN CELL VOLUME 96.8 fl (81.0-99.0); MEAN CORPUSCULAR HGB 31.7 pg (27.0-31.0); MEAN CORPUSCULAR HGB CONC 32.7 g/dl (33.0-37.0); MEAN PLATELET VOLUME 10.8 fl (9.6-12.3); MONO # 0.3 10*3/uL (0.1-1.0); MONO % 4.2 % (3.0-9.0); NEUT # 4.3 10*3/uL (2.3-7.9); NEUT % 68.7 % (47.0-73.0); PLATELET COUNT AUTOMATED 239 10*3/uL (130-400); RED BLOOD COUNT 3.47 10*6/uL (4.10-5.10); RED CELL DISTRI WIDTH 15.3 % (0-14.5); WHITE BLOOD COUNT 6.2 10*3/uL (4.8-10.8)
[2022-12-10 17:03] LABS: POTASSIUM 4.1 mmol/L (3.4-5.1); TOTAL PROTEIN 6.9 gm/dL (6.0-8.0)
== END 2022-12-10 17:58 | disposition home or self-care (01) ==
LOC: ED 14:19
PROVIDERS: Student in an Organized Health Care Education/Training Program
DX: S01.81XA Laceration without foreign body of other part of head, initial encounter (principal); M25.561 Pain in right knee; Z79.899 Other long term (current) drug therapy; Z79.82 Long term (current) use of aspirin; Z90.710 Acquired absence of both cervix and uterus; W17.89XA Other fall from one level to another, initial encounter; Y93.89 Activity, other specified; Y92.89 Other specified places as the place of occurrence of the external cause; Y99.8 Other external cause status

== ENCOUNTER 2025-04-19 19:53 | Emergency (ER) | payer OTHER ==
[~2025-04-19] VITALS: Ht 172.7 cm; Wt 95.3 kg
[2025-04-19] MEDS ORDERED: Lidocaine Hydrochloride 2% 10 ML AMP SC ONE (20:45)
[2025-04-19] MEDS ORDERED: Tdap Vaccine 0.5 ML SYR (Adult Vaccine) IM ONE (20:45)
[2025-04-19] MEDS ORDERED: Bacitracin Zinc 14 GM TUBE T ONE (20:45)
[2025-04-19] MEDS ORDERED: LIDOCAINE HCL/EPINEPHRINE 50 ML VIAL ONE (21:33)
[2025-04-19] MEDS ORDERED: CEPHALEXIN500 M1 PO (23:11)
== END 2025-04-19 23:18 | disposition home or self-care (01) ==
LOC: ED 19:53
DX: S01.111A Laceration without foreign body of right eyelid and periocular area, initial encounter (principal); E11.9 Type 2 diabetes mellitus without complications; I10 Essential (primary) hypertension; I48.91 Unspecified atrial fibrillation; E78.5 Hyperlipidemia, unspecified; I25.10 Atherosclerotic heart disease of native coronary artery without angina pectoris; Z79.899 Other long term (current) drug therapy; Z79.82 Long term (current) use of aspirin; W18.09XA Striking against other object with subsequent fall, initial encounter; Y93.01 Activity, walking, marching and hiking; Y92.89 Other specified places as the place of occurrence of the external cause; Y99.8 Other external cause status; I25.2 Old myocardial infarction; Z90.711 Acquired absence of uterus with remaining cervical stump